=== PATIENT | female | born 1935 | race Caucasian/White ===

== ENCOUNTER → 2017-01-11 | Outpatient (CLI) | payer OTHER ==
[~2017-01-11] MED LIST: ACET-1256 PO; AMLO2.5T PO; FURO-85 PO; LORA-741 PO; ZNTT/150 PO
[2017-01-11 11:29] LABS: HEMATOCRIT 37.3 % (37-47); MEAN CELL VOLUME 96.4 fL (80-100); MEAN CORPUSCULAR HEMOGLOBIN 33.3 pg (25-34); MEAN CORPUSCULAR HGB CONC 34.6 g/dl (32-36); MEAN PLATELET VOLUME 9.7 fL (7.4-10.4); PLATELET COUNT 346 K/uL (130-400); RED BLOOD COUNT 3.87 M/uL (4.2-5.4); WHITE BLOOD COUNT 7.28 K/uL (4.8-10.8)
[2017-01-11 11:33] LABS: URINE APPEARANCE CLEAR (CLEAR); URINE BILIRUBIN NEG (NEG); URINE COLOR YELLOW; URINE EPITHELIAL CELL AUTO 0-5 /lpf (0-5); URINE NITRITE NEG (NEG); URINE SPECIFIC GRAVITY 1.005 (1.000-1.030); UROBILINOGEN NEG (NEG)
[2017-01-11 11:35] LABS: MANUAL MICROSCOPIC REQUIRED? NO; REVIEW REQ? NO
[2017-01-11 11:41] LABS: BLOOD UREA NITROGEN 25 mg/dl (7-18); CALCIUM 9.7 mg/dl (8.5-10.1); CARBON DIOXIDE 23 mmol/L (21-32); CHLORIDE 106 mmol/L (98-107); GLUCOSE 104 mg/dl (70-99); PHOSPHORUS 2.1 mg/dl (2.5-4.9); POTASSIUM 3.9 mmol/L (3.5-5.1); SODIUM 142 mmol/L (136-145)
[2017-01-11 12:00] LABS: URINE PROTIEN/CREAT RATIO 0.3 (0-0.2); URINE TOTAL PROTEIN 6.6 mg/dl (0-11.9)
== END | disposition home or self-care (01) ==
LOC: C.LAB1850 10:26
PROVIDERS: ATTEND Internal Medicine Nephrology
DX: I12.9 Hypertensive chronic kidney disease with stage 1 through stage 4 chronic kidney disease, or unspecified chronic kidney disease (principal); N18.3 Chronic kidney disease, stage 3 (moderate); E55.9 Vitamin D deficiency, unspecified

== ENCOUNTER → 2017-06-11 | Outpatient (CLI) | payer OTHER | END | disposition home or self-care (01) | LOC: C.PATHSPEC 10:45 | PROVIDERS: ATTEND Internal Medicine | DX: D04.4 Carcinoma in situ of skin of scalp and neck (principal) ==

== ENCOUNTER → 2017-06-21 | Outpatient (CLI) | payer OTHER | END | disposition home or self-care (01) | LOC: C.PATHSPEC 11:49 | PROVIDERS: ATTEND Plastic Surgery | DX: C44.42 Squamous cell carcinoma of skin of scalp and neck (principal) ==

== ENCOUNTER → 2017-06-29 | Outpatient (CLI) | payer OTHER | END | disposition home or self-care (01) | LOC: C.PATHSPEC 10:45 | PROVIDERS: ATTEND Plastic Surgery | DX: C44.621 Squamous cell carcinoma of skin of unspecified upper limb, including shoulder (principal); C44.721 Squamous cell carcinoma of skin of unspecified lower limb, including hip ==

== ENCOUNTER → 2017-07-14 | Outpatient (CLI) | payer OTHER ==
[2017-07-14 12:13] LABS: HEMATOCRIT 38.6 % (37-47); MEAN CELL VOLUME 98.2 fL (80-100); MEAN CORPUSCULAR HEMOGLOBIN 33.6 pg (25-34); MEAN CORPUSCULAR HGB CONC 34.2 g/dl (32-36); MEAN PLATELET VOLUME 9.6 fL (7.4-10.4); PLATELET COUNT 354 K/uL (130-400); RED BLOOD COUNT 3.93 M/uL (4.2-5.4); WHITE BLOOD COUNT 7.25 K/uL (4.8-10.8)
[2017-07-14 12:19] LABS: URINE APPEARANCE CLEAR (CLEAR); URINE BILIRUBIN NEG (NEG); URINE COLOR YELLOW; URINE NITRITE NEG (NEG); URINE PH 5.5 (4.5-7.5); URINE SPECIFIC GRAVITY 1.015 (1.000-1.030); UROBILINOGEN NEG (NEG)
[2017-07-14 12:24] LABS: MANUAL MICROSCOPIC REQUIRED? NO; REVIEW REQ? NO
[2017-07-14 12:32] LABS: URINE PROTIEN/CREAT RATIO 0.2 (0-0.2); URINE TOTAL PROTEIN 6.2 mg/dl (0-11.9)
[2017-07-14 12:36] LABS: BLOOD UREA NITROGEN 28 mg/dl (7-18); BUN/CREATININE RATIO 23.2 (10-20); CALCIUM 9.6 mg/dl (8.5-10.1); CARBON DIOXIDE 26 mmol/L (21-32); CHLORIDE 106 mmol/L (98-107); GLUCOSE 102 mg/dl (70-99); PHOSPHORUS 2.3 mg/dl (2.5-4.9); POTASSIUM 3.4 mmol/L (3.5-5.1); SODIUM 140 mmol/L (136-145)
== END | disposition home or self-care (01) ==
LOC: C.LAB1850 11:14
PROVIDERS: ATTEND Internal Medicine Nephrology
DX: I12.9 Hypertensive chronic kidney disease with stage 1 through stage 4 chronic kidney disease, or unspecified chronic kidney disease (principal); N18.3 Chronic kidney disease, stage 3 (moderate); E55.9 Vitamin D deficiency, unspecified; R42 Dizziness and giddiness

== ENCOUNTER → 2017-11-03 | Outpatient (CLI) | payer OTHER ==
[~2017-11-03] MED LIST changes: +RANI150T85 PO; -ZNTT/150 PO
--- NOTE | 2017-11-04 13:47 | MAMMOGRAPHY REPORT ---
BILATERAL DIGITAL SCREENING MAMMOGRAM TOMOSYNTHESIS WITH CAD: 11/03/2017 CLINICAL HISTORY: Routine screening. Patient has no complaints. TECHNIQUE: Breast tomosynthesis in addition to standard 2D mammography was performed. Current study was also evaluated with a Computer Aided Detection (CAD) system. COMPARISON: Comparison is made to exams dated: 10/29/2016 mammogram, 10/28/2015 mammogram, 4 mammogram, 10/12/2013 mammogram, 10/11/2012 mammogram, and 10/08/2011 mammogram - [facility]. BREAST COMPOSITION: There are scattered areas of fibroglandular density in both breasts. FINDINGS: There is a stable grouping of punctate macro calcifications in the right upper outer quadra nt and a few other scattered stable benign-appearing calcifications in the breasts. Stable nodular a symmetry in the medial left breast. Mild vascular calcification bilaterally. No new suspicious mass , architectural distortion or cluster of microcalcifications is seen. IMPRESSION: ACR BI-RADS CATEGORY 1: NEGATIVE There is no mammographic evidence of malignancy. A 1 year screening mammogram is recommended. The pa tient will receive written notification of the results. Approximately 10% of breast cancers are not detected with mammography. A negative mammographic report should not delay biopsy if a clinically suggestive mass is present. Sandy Gonzalez M.D. ay/:11/03/2017 16:42:48 Bench Carpenter: Aleida Burns, [facility] letter sent: Normal 1/2 BI-RADS Code: ACR BI-RADS Category 1: Negative
== END | disposition home or self-care (01) ==
LOC: C.MAMM 09:51
PROVIDERS: ATTEND Obstetrics & Gynecology
DX: Z12.31 Encounter for screening mammogram for malignant neoplasm of breast (principal)

== ENCOUNTER → 2017-12-21 | Outpatient (CLI) | payer OTHER ==
[2017-12-21 15:12] LABS: BASO % 0.5 %; BASO ABS # 0.02 K/uL (0-0.2); EOS % 0.5 %; EOS ABS # 0.02 K/uL (0-0.5); HEMATOCRIT 38.5 % (37-47); HEMOGLOBIN 13.4 g/dL (12.0-16.0); LYMPH % 32.4 %; LYMPH ABS # 1.24 K/uL (1.2-3.4); MEAN CELL VOLUME 95.8 fL (80-100); MEAN CORPUSCULAR HEMOGLOBIN 33.3 pg (25-34); MEAN CORPUSCULAR HGB CONC 34.8 g/dl (32-36); MONO % 10.4 %; NEUT % 56.2 %; NEUT ABS # 2.15 K/uL (1.4-6.5); PLATELET COUNT 300 K/uL (130-400); RED CELL DISTRIBUTION WIDTH CV 13.6 % (11.5-14.5); RED CELL DISTRIBUTION WIDTH SD 47.7 fL (36.4-46.3); WHITE BLOOD COUNT 3.83 K/uL (4.8-10.8)
[2017-12-21 15:19] LABS: ALBUMIN 3.8 gm/dl (3.4-5.0); ALT/SGPT 23 U/L (12-78); AST/SGOT 28 U/L (15-37); BLOOD UREA NITROGEN 23 mg/dl (7-18); CARBON DIOXIDE 21 mmol/L (21-32); CREATININE 1.32 mg/dl (0.60-1.20); GLUCOSE 114 mg/dl (70-99); POTASSIUM 3.4 mmol/L (3.5-5.1); SODIUM 138 mmol/L (136-145)
[2017-12-21 15:22] LABS: ALKALINE PHOSPHATASE 86 U/L (45-117); TOTAL PROTEIN 7.9 gm/dl (6.4-8.2)
== END | disposition home or self-care (01) ==
LOC: C.LABSPEC 14:47
PROVIDERS: ATTEND Internal Medicine Hematology & Oncology
DX: Z85.72 Personal history of non-Hodgkin lymphomas (principal)

== ENCOUNTER 2017-12-28 10:09 | Emergency (ER) | payer OTHER ==
[~2017-12-28] VITALS: Ht 154.9 cm; Wt 64.5 kg
[2017-12-28 10:30] VITALS: TEMP 36.7; Ht 154.9 cm; Wt 64.5 kg
[2017-12-28 10:50] VITALS: O2SAT 96
[2017-12-28 11:46] LABS: BASO % 0.2 %; BASO ABS # 0.02 K/uL (0-0.2); EOS % 0.4 %; EOS ABS # 0.03 K/uL (0-0.5); HEMOGLOBIN 13.4 g/dL (12.0-16.0); IG# 0.01 K/uL (0.00-0.02); LYMPH ABS # 1.37 K/uL (1.2-3.4); MEAN CORPUSCULAR HEMOGLOBIN 33.5 pg (25-34); MEAN CORPUSCULAR HGB CONC 35.3 g/dl (32-36); MEAN PLATELET VOLUME 9.7 fL (7.4-10.4); MONO % 7.8 %; MONO ABS # 0.67 K/uL (0.11-0.59); NEUT % 75.5 %; NEUT ABS # 6.44 K/uL (1.4-6.5); PLATELET COUNT 333 K/uL (130-400); RED CELL DISTRIBUTION WIDTH CV 13.2 % (11.5-14.5); RED CELL DISTRIBUTION WIDTH SD 45.9 fL (36.4-46.3); WHITE BLOOD COUNT 8.54 K/uL (4.8-10.8)
[2017-12-28 11:54] LABS: INR 1.1 (0.9-1.1); PTT PATIENT 24.5 SECONDS (21.0-31.0)
[2017-12-28 12:04] LABS: BLOOD UREA NITROGEN 17 mg/dl (7-18); CALCIUM 9.4 mg/dl (8.5-10.1); CARBON DIOXIDE 26 mmol/L (21-32); CREATININE 0.93 mg/dl (0.60-1.20); GLUCOSE 97 mg/dl (70-99); POTASSIUM 3.2 mmol/L (3.5-5.1); SODIUM 142 mmol/L (136-145)
[2017-12-28] MEDS ORDERED: POTASSIUM CHLORIDE 10 MEQ TABCR PO STA (12:33)
[2017-12-28 12:42] LABS: INFLUENZA A PCR Neg for Influ A (NEG); INFLUENZA B PCR POS for Influ B (NEG)
--- NOTE | 2017-12-28 13:19 | DIAGNOSTIC IMAGING REPORT ---
CHEST 2 VIEWS ROUTINE CLINICAL HISTORY: cough eval for pna dyspnea COMPARISON STUDY: 06/20/2016 FINDINGS: The bones soft tissues and hemidiaphragms are normal. The cardiomediastinal silhouette is normal. The lungs are clear. The pulmonary vasculature is normal. Chronic pleural reactive changes left base. Mild underlying emphysematous change. IMPRESSION: Chronic change. No acute process. The above report was generated using voice recognition software. It may contain grammatical, syntax or spelling errors. Electronically signed by: Chan Dinh M.D. 12/28/2017 1:17 PM Dictated Date/Time: 12/28/2017 1:17 PM
[2017-12-28 14:27] VITALS: BP 166/70; PULSE 90; O2SAT 99
--- NOTE | 2017-12-28 17:51 | EMERGENCY ROOM VISIT NOTE ---
History Report prepared by Clara: Shasha Montilla Under the Supervision of: Dr. Moncho Anderson M.D. First contact with patient: 10:55 Chief Complaint: FLU LIKE SX Stated Complaint: WEAKNESS,COUGH,DIZZY History of Present Illness The patient is a 82 year old female who presents to the Emergency Room with complaints of constant flu-like symptoms for the past couple of weeks. The patient states that her symptoms initially started with a productive cough. She has had chills and sharp pain in her chest with coughing only. She denies any chest pressure or tightness. She saw her PCP two weeks ago and was diagnosed with bronchitis. She was placed on azithromycin at that time. She finished this medication last week. The patient states that she was feeling better and her cough has improved. Now she feels fine with resting but states that when she stands up and moves around she feels weak and lightheaded. She had decreased appetite but states that she has been eating normally over the past two days. Prior to that she was only drinking Gatorade and not eating. The patient denies fevers, shortness of breath, vomiting, abdominal pain, and diarrhea. She did not have a flu shot this year. Source of History: patient Onset: a couple of weeks ago Position: other (global) Quality: other (flu-like) Timing: constant Modifying Factors (Worsening): other (standing up and moving around) Modifying Factors (Relieving): rest Associated Symptoms: + cough, + weakness, No fevers, No SOB, No vomiting, No abdominal pain, No diarrhea Review of Systems See HPI for pertinent positives & negatives. A total of 10 systems reviewed and were otherwise negative. 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 Family History Cancer Hypertension Social History Smoking Status: Former Smoker Alcohol Use: none Drug Use: none Housing Status: lives alone Occupation Status: retired Current/Historical Medications Scheduled Amlodipine (Norvasc), 5 MG PO QAM Furosemide (Lasix), 20 MG PO QAM Ranitidine (Zantac), 150 MG PO BID Scheduled PRN Acetaminophen (Tylenol), 500 MG PO Q6 PRN for Pain Lorazepam (Ativan), 0.5 MG PO TID PRN for Anxiety Allergies Coded Allergies: Cortisone (Verified Allergy, Severe, SWELLING , H/A , HALLUCINATIONS, 12/28) Chocolate (Unverified Allergy, Unknown, RASH, 12/28/17) Diphenhydramine (Verified Allergy, Unknown, Facial swelling,redness and burning sensation., 12/28/17) Reported by PT. Iodinated Diagnostic Agents (Verified Allergy, Unknown, REDDNESS, SWELLING , 12/28/17) Physical Exam Vital Signs Date Time Temp Pulse Resp B/P (MAP) Pulse Ox O2 Delivery O2 Flow Rate FiO2 12/28/17 14:27 90 16 166/70 99 12/28/17 12:00 82 161/67 98 Room Air 80 165/76 98 170/75 12/28/17 10:54 82 12/28/17 10:50 96 Room Air 12/28/17 10:30 36.7 86 18 149/74 96 Room Air Physical Exam Constitutional: Vital signs reviewed. Eyes: Pupils are equal round reactive to light. Conjunctiva are noninjected. ENT: Pharynx is clear without erythema or exudate. Mucous membranes are moist. Neck supple without meningeal signs. Respiratory: Scattered wheezing. Breath sounds are equal bilaterally. Cardiovascular: Regular rate and rhythm. No rubs or gallops. GI: Soft, nondistended and nontender. Bowel sounds are present. Musculoskeletal: No peripheral edema. No lower extremity tenderness. Integumentary: No cyanosis. Neurological: The patient is awake and alert. No focal deficits. Psychiatric: Normal affect. Medical Decision & Procedures ER Provider Diagnostic Interpretation: Radiology results as stated below per my review and the radiologist's interpretation: CHEST 2 VIEWS ROUTINE CLINICAL HISTORY: cough eval for pna dyspnea COMPARISON STUDY: 06/20/2016 FINDINGS: The bones soft tissues and hemidiaphragms are normal. The cardiomediastinal silhouette is normal. The lungs are clear. The pulmonary vasculature is normal. Chronic pleural reactive changes left base. Mild underlying emphysematous change. IMPRESSION: Chronic change. No acute process. The above report was generated using voice recognition software. It may contain grammatical, syntax or spelling errors. Electronically signed by: Chan Dinh M.D. 12/28/2017 1:17 PM Dictated Date/Time: 12/28/2017 1:17 PM Laboratory Results 12/28/17 11:28 Red Blood Count 4.00, Mean Corpuscular Volume 95.0, Mean Corpuscular Hemoglobin 33.5, Mean Corpuscular Hemoglobin Concent 35.3, Mean Platelet Volume 9.7, Neutrophils (%) (Auto) 75.5, Lymphocytes (%) (Auto) 16.0, Monocytes (%) (Auto) 7.8, Eosinophils (%) (Auto) 0.4, Basophils (%) (Auto) 0.2, Neutrophils # (Auto) 6.44, Lymphocytes # (Auto) 1.37, Monocytes # (Auto) 0.67, Eosinophils # (Auto) 0.03, Basophils # (Auto) 0.02 12/28/17 11:28 Test 12/28/17 11:15 12/28/17 11:28 12/28/17 11:44 Influenza Type A (RT-PCR) Neg for Influ A (NEG) Influenza Type B (RT-PCR) POS for Influ B (NEG) White Blood Count 8.54 K/uL (4.8-10.8) Red Blood Count 4.00 M/uL (4.2-5.4) Hemoglobin 13.4 g/dL (12.0-16.0) Hematocrit 38.0 % (37-47) Mean Corpuscular Volume 95.0 fL (80-100) Mean Corpuscular Hemoglobin 33.5 pg (25-34) Mean Corpuscular Hemoglobin Concent 35.3 g/dl (32-36) Platelet Count 333 K/uL (130-400) Mean Platelet Volume 9.7 fL (7.4-10.4) Neutrophils (%) (Auto) 75.5 % Lymphocytes (%) (Auto) 16.0 % Monocytes (%) (Auto) 7.8 % Eosinophils (%) (Auto) 0.4 % Basophils (%) (Auto) 0.2 % Neutrophils # (Auto) 6.44 K/uL (1.4-6.5) Lymphocytes # (Auto) 1.37 K/uL (1.2-3.4) Monocytes # (Auto) 0.67 K/uL (0.11-0.59) Eosinophils # (Auto) 0.03 K/uL (0-0.5) Basophils # (Auto) 0.02 K/uL (0-0.2) RDW Standard Deviation 45.9 fL (36.4-46.3) RDW Coefficient of Variation 13.2 % (11.5-14.5) Immature Granulocyte % (Auto) 0.1 % Immature Granulocyte # (Auto) 0.01 K/uL (0.00-0.02) Prothrombin Time 11.1 SECONDS (9.0-12.0) Prothromb Time International Ratio 1.1 (0.9-1.1) Activated Partial Thromboplast Time 24.5 SECONDS (21.0-31.0) Partial Thromboplastin Ratio 0.9 Anion Gap 8.0 mmol/L (3-11) Est Creatinine Clear Calc Drug Dose 39.4 ml/min Estimated GFR () 65.9 Estimated GFR (Non- 56.8 BUN/Creatinine Ratio 18.1 (10-20) Calcium Level 9.4 mg/dl (8.5-10.1) Troponin I < 0.015 ng/ml (0-0.045) Thyroid Stimulating Hormone (TSH) 2.130 uIu/ml (0.300-4.500) Free Thyroxine 1.20 ng/dl (0.80-1.60) Urine Color YELLOW Urine Appearance CLEAR (CLEAR) Urine pH 6.0 (4.5-7.5) Urine Specific [place] 1.007 (1.000-1.030) Urine Protein NEG (NEG) Urine Glucose (UA) NEG (NEG) Urine Ketones NEG (NEG) Urine Occult Blood NEG (NEG) Urine Nitrite NEG (NEG) Urine Bilirubin NEG (NEG) Urine Urobilinogen NEG (NEG) Urine Leukocyte Esterase TRACE (NEG) Urine WBC (Auto) 1-5 /hpf (0-5) Urine RBC (Auto) 0-4 /hpf (0-4) Urine Hyaline Casts (Auto) 1-5 /lpf (0-5) Urine Epithelial Cells (Auto) 0-5 /lpf (0-5) Urine Bacteria (Auto) NEG (NEG) Laboratory results as reviewed by me. Medications Administered Medications (Trade) Dose Ordered Sig/Jarrett Route Start Time Stop Time Status Last Admin Dose Admin Potassium Chloride (Klor-Con M10) 40 meq NOW STAT PO 12/28/17 12:33 12/28/17 12:34 DC 12/28/17 13:16 40 MEQ ECG Per My Interpretation Indication: weakness Rate (beats per minute): 79 Rhythm: normal sinus Findings: no ectopy, other (no ST elevation; baseline artifact limiting interpretation; questionable biphasic T-waves in V3) ED Course 1055: The patient was evaluated in room B9. A complete history and physical exam was performed. 1233: Potassium Chloride 40 meq PO 1357: I reassessed the patient at this time. She is feeling better and resting comfortably. I discussed the results and treatment plan with the patient. I answered all pertaining questions that she had. She expressed understanding and verbalized agreement. The patient will be discharged home. Medical Decision This is an 82-year-old female presents with flulike symptoms and generalized weakness. Differential diagnosis includes pneumonia, bronchitis, sepsis, influenza, dehydration. I did perform a limited focused review of portions of the patient's old chart on the electronic medical record. The patient has had no recent pertinent visits to this hospital. I did evaluate the patient as noted above. IV access was established. The patient was placed on a continuous monitor technician. I did order and personally review the patient's 12-lead EKG and chest x-ray as described above. Chest x- ray does not demonstrate pneumonia. I did order and review the patient's blood work as noted in the electronic medical record. She does have hypokalemia. She was given some oral potassium. I did order a flu test which was positive for influenza B. I did reassess the patient. I did discuss the test results with the patient and her daughter. She has had symptoms for 2 weeks and so she is not a candidate for Tamiflu. She was discharged in good condition and advised to follow closely with her doctor. Medication Reconcilliation Current Medication List: was personally reviewed by me Blood Pressure Screening Patient's blood pressure: Elevated blood pressure Blood pressure disposition: Referred to PCP Impression Primary Impression: Influenza B Additional Impression: Hypokalemia Scribe Attestation The scribe's documentation has been prepared under my direct and personally reviewed by me in its entirety. I confirm that the note above accurately reflects all work, treatment, procedures, and medical decision making performed by me. Departure Information Dispostion Home / Self-Care Referrals Chava Grey M.D. (PCP) Forms HOME CARE DOCUMENTATION FORM, IMPORTANT VISIT INFORMATION Patient Instructions ED Flu, Hypokalemia Dc, My [facility] Additional Instructions You have been examined and treated today on an emergency basis only. This is not a substitute for, or an effort to provide, complete comprehensive medical care. It is impossible to recognize and treat all injuries or illnesses in a single emergency department visit. It is therefore important that you follow up closely with your physician. Call as soon as possible for an appointment. Return for worsening symptoms or if you develop trouble breathing, vomiting or any other concerning symptoms. Problem Qualifiers
== END 2017-12-28 14:28 | disposition home or self-care (01) ==
LOC: C.EDB 10:10
DX: J10.1 Influenza due to other identified influenza virus with other respiratory manifestations (principal); E87.6 Hypokalemia; I10 Essential (primary) hypertension; K57.90 Diverticulosis of intestine, part unspecified, without perforation or abscess without bleeding; Z82.49 Family history of ischemic heart disease and other diseases of the circulatory system; Z87.891 Personal history of nicotine dependence; Z88.8 Allergy status to other drugs, medicaments and biological substances

== ENCOUNTER → 2018-01-11 | Outpatient (CLI) | payer OTHER ==
--- NOTE | 2018-01-11 12:35 | DIAGNOSTIC IMAGING REPORT ---
SOFT TISS HEAD/NECK-THYROID CLINICAL HISTORY: 82 years-old Female with RIGHT NECK MASS. Acute palpable amount of the right neck COMPARISON: MRA of the neck 06/20/2016 TECHNIQUE: Multiple real time sonographic images of the right neck were obtained accessing garner scale appearance and color doppler flow. FINDINGS: Within the area of palpable concern there is a heterogeneous complex soft tissue mass within the superficial subcutaneous and deep tissues measuring 5.1 x 2.4 x 4.3 cm inferior to the right submandibular region demonstrating heterogeneous internal vascularity. No drainable fluid collections or additional soft tissue mass is identified. IMPRESSION: 5.1 cm heterogeneous soft tissue mass of the right neck within the right submandibular region. The lesion is marked for ultrasound-guided biopsy. The above report was generated using voice recognition software. It may contain grammatical, syntax or spelling errors. Electronically signed by: Luis Manuel Thomas M.D. 01/11/2018 12:34 PM Dictated Date/Time: 01/11/2018 12:30 PM
--- NOTE | 2018-01-11 13:42 | DIAGNOSTIC IMAGING REPORT ---
GUIDANCE NEEDLE PLACEMENT CLINICAL HISTORY: Heterogeneous 5.1 cm mass of the right neck. Patient presents with history of lymphoma. COMPARISON STUDY: Neck ultrasound of same day. PROCEDURE: The risks, benefits, and alternatives to the procedure were discussed with the patient. Written informed consent was obtained. The patient was placed supine in ultrasound, and the 5.1 cm heterogeneous mass of the right neck was localized by ultrasound and selected for fine needle aspiration and core needle biopsy. The right neck was prepped and draped in the usual sterile fashion. The mass was aspirated under ultrasound guidance with 2 passes utilizing 25-gauge needles and one pass with a 20-gauge core needle biopsy device. Specimens were reviewed by the pathologist in real-time and deemed adequate for diagnosis. The patient tolerated the procedure well and left the department in satisfactory condition. IMPRESSION: Completed fine-needle aspiration and core needle biopsy of a 5.1 cm right neck mass as above. Pathology pending. The above report was generated using voice recognition software. It may contain grammatical, syntax or spelling errors. Electronically signed by: Luis Manuel Thomas M.D. 01/11/2018 1:40 PM Dictated Date/Time: 01/11/2018 1:37 PM
== END | disposition home or self-care (01) ==
LOC: C.ULTR 11:46
PROVIDERS: ATTEND Internal Medicine Hematology & Oncology
DX: R22.1 Localized swelling, mass and lump, neck (principal); Z85.72 Personal history of non-Hodgkin lymphomas

== ENCOUNTER → 2018-01-13 | Outpatient (CLI) | payer OTHER ==
[2018-01-13 15:29] LABS: BASO % 0.5 %; BASO ABS # 0.04 K/uL (0-0.2); EOS ABS # 0.09 K/uL (0-0.5); HEMATOCRIT 37.1 % (37-47); HEMOGLOBIN 12.9 g/dL (12.0-16.0); IG# 0.03 K/uL (0.00-0.02); LYMPH % 24.2 %; LYMPH ABS # 2.08 K/uL (1.2-3.4); MEAN CELL VOLUME 97.1 fL (80-100); MEAN CORPUSCULAR HEMOGLOBIN 33.8 pg (25-34); MEAN CORPUSCULAR HGB CONC 34.8 g/dl (32-36); MEAN PLATELET VOLUME 9.7 fL (7.4-10.4); MONO % 9.5 %; MONO ABS # 0.82 K/uL (0.11-0.59); NEUT % 64.5 %; NEUT ABS # 5.53 K/uL (1.4-6.5); PLATELET COUNT 422 K/uL (130-400); RED CELL DISTRIBUTION WIDTH CV 14.1 % (11.5-14.5); RED CELL DISTRIBUTION WIDTH SD 50.1 fL (36.4-46.3); WHITE BLOOD COUNT 8.59 K/uL (4.8-10.8)
[2018-01-13 16:40] LABS: BLOOD UREA NITROGEN 25 mg/dl (7-18); CARBON DIOXIDE 23 mmol/L (21-32); CREATININE 1.18 mg/dl (0.60-1.20); GLUCOSE 111 mg/dl (70-99); POTASSIUM 3.7 mmol/L (3.5-5.1); SODIUM 137 mmol/L (136-145)
== END | disposition home or self-care (01) ==
LOC: C.LABSPEC 14:32
PROVIDERS: ATTEND Internal Medicine
DX: N18.3 Chronic kidney disease, stage 3 (moderate) (principal); I12.9 Hypertensive chronic kidney disease with stage 1 through stage 4 chronic kidney disease, or unspecified chronic kidney disease; E55.9 Vitamin D deficiency, unspecified

== ENCOUNTER → 2018-02-21 | Outpatient (CLI) | payer OTHER ==
--- NOTE | 2018-02-21 14:37 | DIAGNOSTIC IMAGING REPORT ---
PET/CT HISTORY: LYMPHOMA TECHNIQUE: PET/CT was performed from the base of the skull through the pelvis following the intravenous administration of 9.8 mCi of F18-FDG. Non-contrast CT imaging was performed over the same range without breath-hold for attenuation correction of PET images and anatomic correlation, but not for primary interpretation as it is not of standard diagnostic quality. CT DOSE: 528.71 mGycm COMPARISON: Neck CT 06/02/2016. Neck ultrasound 01/11/2018. PET CT 09/10/2014. FINDINGS: HEAD AND NECK: There is a 4 cm mass within the right side of the neck which demonstrates intense FDG uptake with an SUV max of 7. There is a 7 mm lymph node within the left neck base which has decreased in size, previously measuring 13 mm. The FDG uptake associated with this lesion has also decreased measuring 2.5. However, there is a new right supraclavicular FDG avid lymph node right which measures 11 mm and demonstrates an SUV max of 2.1. FDG uptake within the posterior fat of the neck base may be due to brown fat. CHEST: No FDG avid mediastinal or hilar lymph nodes. Mildly enlarged right axillary lymph nodes demonstrate mild FDG uptake with an SUV max of 2. Dominant right axillary lymph node measures 1.2 cm. Increase in size in the left lower lateral pleural base lesion which measures 6.8 x 2.0 cm. This demonstrates intense FDG uptake with an SUV max of 14. There is a new FDG avid left lower posterior pleural-based lesion which measures 3.1 x 1.4 cm. This demonstrates an SUV max of 11. ABDOMEN/PELVIS: No FDG avid hepatic or splenic lesions. Interval development of multiple enlarged and FDG avid retroperitoneal lymph nodes. Dominant retroperitoneal lymph node measures 3.2 cm with an SUV max of 7. There are also enlarged left external iliac and inguinal lymph nodes demonstrating abnormal FDG uptake. Dominant external iliac lymph node measures 3.6 cm and demonstrates an SUV max of 15. There are few small right external iliac lymph nodes measure up to 9 mm which demonstrate minimal FDG uptake. There is also a 2 cm FDG avid nodule within the mid omentum on image 183. This demonstrates an SUV max of 4.9. MUSCULOSKELETAL: There is a 2.5 cm focus of intense FDG uptake associated with the femoral component of the left knee prosthesis. This demonstrates an SUV max of 6.9. This area is not well-visualized by the CT due to the metallic artifact. IMPRESSION: 1. Significant progression of FDG avid disease within the neck, chest, abdomen, pelvis as described above consistent with the patient's lymphoma. 2. There is also a 2.5 cm indeterminate focus of intense FDG uptake associated with the femoral component of the left knee prosthesis. This area is not well visualized by CT due to the metallic artifact. Electronically signed by: Andrew Mart M.D. 02/21/2018 2:36 PM Dictated Date/Time: 02/21/2018 2:14 PM
== END | disposition home or self-care (01) ==
LOC: C.PET 10:07
PROVIDERS: ATTEND Internal Medicine Hematology & Oncology
DX: C82.01 Follicular lymphoma grade I, lymph nodes of head, face, and neck (principal)

== ENCOUNTER → 2018-02-25 | Outpatient (CLI) | payer OTHER ==
[2018-02-25 18:14] LABS: BASO % 0.3 %; BASO ABS # 0.02 K/uL (0-0.2); EOS % 1.6 %; HEMATOCRIT 38.3 % (37-47); HEMOGLOBIN 12.9 g/dL (12.0-16.0); IG# 0.03 K/uL (0.00-0.02); LYMPH % 26.1 %; LYMPH ABS # 1.65 K/uL (1.2-3.4); MEAN CELL VOLUME 100.5 fL (80-100); MEAN CORPUSCULAR HEMOGLOBIN 33.9 pg (25-34); MEAN CORPUSCULAR HGB CONC 33.7 g/dl (32-36); MEAN PLATELET VOLUME 9.8 fL (7.4-10.4); MONO % 8.4 %; MONO ABS # 0.53 K/uL (0.11-0.59); NEUT % 63.1 %; NEUT ABS # 3.98 K/uL (1.4-6.5); PLATELET COUNT 348 K/uL (130-400); RED CELL DISTRIBUTION WIDTH CV 14.3 % (11.5-14.5); RED CELL DISTRIBUTION WIDTH SD 52.9 fL (36.4-46.3); WHITE BLOOD COUNT 6.31 K/uL (4.8-10.8)
[2018-02-25 18:38] LABS: ALBUMIN 3.8 gm/dl (3.4-5.0); ALT/SGPT 24 U/L (12-78); BLOOD UREA NITROGEN 24 mg/dl (7-18); CALCIUM 9.6 mg/dl (8.5-10.1); CARBON DIOXIDE 23 mmol/L (21-32); CREATININE 1.19 mg/dl (0.60-1.20); GLUCOSE 149 mg/dl (70-99); POTASSIUM 3.8 mmol/L (3.5-5.1); SODIUM 140 mmol/L (136-145)
[2018-02-25 18:41] LABS: ALKALINE PHOSPHATASE 79 U/L (45-117); AST/SGOT 19 U/L (15-37); TOTAL PROTEIN 7.5 gm/dl (6.4-8.2)
== END | disposition home or self-care (01) ==
LOC: C.LABSPEC 16:30
PROVIDERS: ATTEND Internal Medicine Hematology & Oncology
DX: C82.01 Follicular lymphoma grade I, lymph nodes of head, face, and neck (principal)

== ENCOUNTER → 2018-03-01 | Outpatient (CLI) | payer OTHER ==
--- NOTE | 2018-03-01 11:41 | DIAGNOSTIC IMAGING REPORT ---
RIBS UNILATERAL WITH PA CHEST CLINICAL HISTORY: LT RIB PAIN pain COMPARISON STUDY: 01/25/2018 FINDINGS: Mild cardiomegaly. Minimal pleural reactive change left base. The left ribs show no acute bony antibody. Cortical margins are intact. IMPRESSION: 1. Negative left ribs. 2. Mild atelectasis/pleural reactive changes left base. The above report was generated using voice recognition software. It may contain grammatical, syntax or spelling errors. Electronically signed by: Chan Dinh M.D. 03/01/2018 11:40 AM Dictated Date/Time: 03/01/2018 11:37 AM
== END | disposition home or self-care (01) ==
LOC: C.RAD 10:51
PROVIDERS: ATTEND Internal Medicine
DX: R07.81 Pleurodynia (principal)

== ENCOUNTER → 2018-03-08 | Outpatient (CLI) | payer OTHER ==
[2018-03-08 17:16] LABS: BASO % 0.3 %; BASO ABS # 0.02 K/uL (0-0.2); EOS % 1.1 %; EOS ABS # 0.08 K/uL (0-0.5); HEMATOCRIT 39.1 % (37-47); HEMOGLOBIN 13.3 g/dL (12.0-16.0); IG# 0.01 K/uL (0.00-0.02); LYMPH ABS # 1.62 K/uL (1.2-3.4); MEAN CORPUSCULAR HEMOGLOBIN 33.7 pg (25-34); MEAN PLATELET VOLUME 9.6 fL (7.4-10.4); MONO % 9.2 %; MONO ABS # 0.68 K/uL (0.11-0.59); NEUT % 67.3 %; NEUT ABS # 4.95 K/uL (1.4-6.5); PLATELET COUNT 390 K/uL (130-400); RED CELL DISTRIBUTION WIDTH SD 50.1 fL (36.4-46.3); WHITE BLOOD COUNT 7.36 K/uL (4.8-10.8)
[2018-03-08 17:27] LABS: ALT/SGPT 26 U/L (12-78); AST/SGOT 28 U/L (15-37); BLOOD UREA NITROGEN 25 mg/dl (7-18); CALCIUM 9.5 mg/dl (8.5-10.1); CARBON DIOXIDE 25 mmol/L (21-32); CREATININE 1.27 mg/dl (0.60-1.20); GLUCOSE 84 mg/dl (70-99); POTASSIUM 3.8 mmol/L (3.5-5.1); SODIUM 137 mmol/L (136-145)
[2018-03-08 17:29] LABS: ALKALINE PHOSPHATASE 79 U/L (45-117); TOTAL PROTEIN 8.2 gm/dl (6.4-8.2)
[2018-03-08 18:14] LABS: HEP C IGG 13 YRS+OLDER_RFLX NEG (NEG)
[2018-03-10 08:24] LABS: HEPATITIS A IGM TC 51813E NON-REACTIVE (NON-REACTIVE); HEPATITIS B CORE IGM TC51854R NON-REACTIVE (NON-REACTIVE)
--- NOTE | 2018-03-10 15:24 | CODING QUERY NO DIAGNOSIS ---
TREATMENT RENDERED WITHOUT A DIAGNOSIS 34 To promote full compliance with coding requirements relating to patient care, physician participation is requested in all cases of delinquent account clerk uncertainty. Please assist us with providing a diagnosis/symptom for the test(s) below: A diagnosis/symptom was not documented on your Order. A valid diagnosis/symptom is required to bill all insurances. Please remember that we are unable to code a diagnosis of rule out, probable, possible, questionable, or suspected. DOS 03/08/18 Tests that require a diagnosis: * COMP METABOLIC DIAGNOSIS: * LDH DIAGNOSIS: * CBC W/AUTO DIFF DIAGNOSIS: * HEPATITIS A ab, IgM DIAGNOSIS: * HEPATITIS B core antibody DIAGNOSIS: * HEPATITIS B surface antigen DIAGNOSIS: * HEPATITIS C antibody DIAGNOSIS: Provider Signature: Date: Thank you Christelherbie [facility] [employer] [facility] Once completed, please kindly fax back to [phone] For questions please call [phone]
== END | disposition home or self-care (01) ==
LOC: C.LABSPEC 16:47
PROVIDERS: ATTEND Internal Medicine Hematology & Oncology
DX: Z01.89 Encounter for other specified special examinations (principal)

== ENCOUNTER → 2018-03-15 | Outpatient (CLI) | payer OTHER ==
[2018-03-15 19:47] LABS: BASO % 0.1 %; BASO ABS # 0.01 K/uL (0-0.2); EOS % 0.6 %; EOS ABS # 0.05 K/uL (0-0.5); HEMATOCRIT 38.8 % (37-47); HEMOGLOBIN 13.1 g/dL (12.0-16.0); IG# 0.03 K/uL (0.00-0.02); LYMPH % 22.7 %; LYMPH ABS # 1.85 K/uL (1.2-3.4); MEAN CORPUSCULAR HEMOGLOBIN 33.8 pg (25-34); MEAN CORPUSCULAR HGB CONC 33.8 g/dl (32-36); MEAN PLATELET VOLUME 9.4 fL (7.4-10.4); MONO ABS # 0.98 K/uL (0.11-0.59); NEUT % 64.2 %; NEUT ABS # 5.24 K/uL (1.4-6.5); PLATELET COUNT 396 K/uL (130-400); RED CELL DISTRIBUTION WIDTH CV 14.1 % (11.5-14.5); RED CELL DISTRIBUTION WIDTH SD 51.7 fL (36.4-46.3); WHITE BLOOD COUNT 8.16 K/uL (4.8-10.8)
[2018-03-15 19:56] LABS: ALBUMIN 3.9 gm/dl (3.4-5.0); ALT/SGPT 25 U/L (12-78); AST/SGOT 21 U/L (15-37); BLOOD UREA NITROGEN 28 mg/dl (7-18); CALCIUM 9.3 mg/dl (8.5-10.1); CARBON DIOXIDE 25 mmol/L (21-32); CREATININE 1.27 mg/dl (0.60-1.20); GLUCOSE 98 mg/dl (70-99); POTASSIUM 3.6 mmol/L (3.5-5.1); SODIUM 139 mmol/L (136-145)
[2018-03-15 19:59] LABS: ALKALINE PHOSPHATASE 83 U/L (45-117); TOTAL PROTEIN 7.9 gm/dl (6.4-8.2)
--- NOTE | 2018-03-19 06:53 | CODING QUERY MEDICAL NECESSITY ---
CQTREATMENT RENDERED WITHOUT A DIAGNOSIS To promote full compliance with coding requirements relating to patient care, physician participation is requested in all cases of sandwich peddler uncertainty. Please assist us with providing a diagnosis/symptom for the test(s) below: A diagnosis/symptom was not documented on your Order. A valid diagnosis/symptom is required to bill all insurances. Please remember that we are unable to code a diagnosis of rule out, probable, possible, questionable, or suspected. Tests that require a diagnosis: DOS 03/15/18 CBC WITH AUTO DIFF COMPREHENSIVE METABOLIC Provider Signature: Date: Thank you Jessika [facility] Once completed, please kindly fax back to [phone] For questions please call [phone]
== END | disposition home or self-care (01) ==
LOC: C.LABSPEC 17:05
PROVIDERS: ATTEND Internal Medicine Hematology & Oncology
DX: I10 Essential (primary) hypertension (principal)

== ENCOUNTER 2018-12-23 11:57 | Inpatient (IN) ==
[2018-12-23] MEDS ORDERED: ONDANSETRON INJ 2 MG/ML 2 ML VIAL IV STA (12:49)
[2018-12-23 12:50] LABS: Hematocrit (blood only) 39.8 % (37-47); Hemoglobin 13.6 g/dL (12.0-16.0); Mean Corpuscular Hgb Conc 34.2 g/dL (32-36); Mean Platelet Volume 9.6 fL (7.4-10.4); Platelet Count 331 K/uL (130-400); RDW Coefficient of Variation 13.8 % (11.5-14.5); RDW Standard Deviation 49.3 fL (36.4-46.3); Red Blood Count 4.06 M/uL (4.2-5.4); White Blood Count 13.88 K/uL (4.8-10.8)
[2018-12-23] MEDS ORDERED: SODIUM CHLORIDE 0.9% 1000ML 1,000 ML IV SCH (13:00)
[2018-12-23] MEDS ORDERED: ACETAMINOPHEN 500 MG TAB PO STA (13:03)
[2018-12-23 13:07] LABS: Alanine Aminotransferase 17 U/L (12-78); Aspartate Aminotransferase 20 U/L (15-37); BUN Creatinine Ratio 17.5 (10-20); Blood Urea Nitrogen 22 mg/dl (7-18); Calcium 10.1 mg/dl (8.5-10.1); Carbon Dioxide 20 mmol/L (21-32); Chloride 105 mmol/L (98-107); Est GFR (African American) 45.3; Est GFR (Non-African American) 39.1; Glucose 104 mg/dl (70-99); Potassium 3.5 mmol/L (3.5-5.1); Sodium 137 mmol/L (136-145)
[2018-12-23 13:10] LABS: Albumin Globulin Ratio 1.1 (0.9-2); Alkaline Phosphatase 103 U/L (45-117); Bilirubin,Total 0.6 mg/dl (0.2-1); Globulin 3.7 gm/dl (2.5-4.0); Total Protein 7.7 gm/dl (6.4-8.2)
[2018-12-23 13:19] LABS: Basophils # (auto) 0.03 K/uL (0-0.2); Basophils % (auto) 0.2 %; Eosinophils # (auto) 0.01 K/uL (0-0.5); Eosinophils % (auto) 0.1 %; Immature Granulocytes # (auto) 0.97 K/uL (0.00-0.02); Lymphocytes # (auto) 0.65 K/uL (1.2-3.4); Lymphocytes % (auto) 4.7 %; Monocytes # (auto) 0.65 K/uL (0.11-0.59); Monocytes % (auto) 4.7 %; Neutrophils # (auto) 11.57 K/uL (1.4-6.5); Neutrophils % (auto) 83.3 %
--- NOTE | 2018-12-23 13:35 | CT Scan Report ---
CT abd pelvis wo con CT DOSE: 669.55 mGycm HISTORY: Pain llq abd pain TECHNIQUE: Multiaxial CT images of the abdomen and pelvis were performed without contrast. A dose lo wering technique was utilized adhering to the principles of ALARA. COMPARISON STUDY: 11/07/2018 FINDINGS: Lung bases are clear. Liver spleen and pancreas are unremarkable. Kidneys are negative for hydronephrosis. There is a left renal extrarenal pelvis which is unchanged. Retroperitoneal and para-aortic adenopathy is stable. Pelvic and inguinal adenopathy primarily on the left is also stable. Urinary tracts show no obstructive change. Bladder is midline with no contained calcifications. Bowel pattern is remarkable for scattered colonic diverticuli. There is no evidence for acute diverti culitis. The bowel pattern is nonobstructive. Considerable atherosclerotic change abdominal aorta as well as p elvic arterial vasculature considered unchanged. IMPRESSION: 1. Left iliac, inguinal, as well as abdominal]. Adenopathy. 2. This is considered stable compared to the prior study with no significant interval change. 3. Nonobstructive bowel pattern. 4.. Fibroid Uterus unchanged from the prior study. 5. No acute process of the abdomen or pelvis. The above report was generated using voice recognition software. It may contain grammatical, syntax or spelling errors. Electronically signed by: Chan Dinh M.D. 12/23/2018 1:34 PM
--- NOTE | 2018-12-23 14:07 | History & Physical Report ---
Date of Service December 23, 2018 Assessment & Plan (1) Abdominal lymphadenopathy: (2) Abdominal pain: - Admit to med surg with tele - Acute onset abdominal pain in the setting of current chemotherapeutics with WBC elevation of 13K, + left shift, and elevated lactic acid = 4 is concerning for bowel ischemia. - Consult general surgery for evaluation - CT noncontrast without acute findings, may repeat CT angio of the abdomen to evaluate for ischemia. Renal function is stable, Cr.= 1.2 - Check amylase - NSS at 125 ml/hr x 8 hrs. - Antiemetics (3) Non-Hodgkin lymphoma: - Consult oncology, follow with Dr. Persaud as an outpatient - Rituxin scheduled for 01/09/19 (4) Benign essential HTN: - BP stable, pt did not take morning medications today: hold lasix with fluid rescusitation for LA elevation. - Continue norvasc (5) Osteoarthritis: - Continue tylenol for pain prn (6) Anxiety: - Continue lorazepam 0.5 mg TID, pt typically may only use this once daily. - Stable (7) DVT prophylaxis: - heparin subq History of Present Illness Chief Complaint: Abdominal pain Primary Care Provider: Chava Clements MD This is a 83 yo F with PMHx of Nonhodgkin's lymphoma origionally diagnosed in 1999, actively being treated with Rituxin due to recurrence. Her most recent chemotherapy was at the end of November, and next sheduled tx is 01/09/19. She has had one abdominal surgery in the past where a lymph node was laproscopically removed ~7 years ago. She also has PMHx of HTN and osteoarthritis. Pt notes that this morning she was getting ready to drive her car, and all of a sudden developed left lower abdominal pain which caused her to double over and could barely walk, paired with ongoing cramping at this time , as well as radiation of pain into the groin. Since being in the ER she was given tylenol 1000 mg which has dulled the pain, and can tolerate palpation. She admits to nausea when the pain occurred, but did not vomit. Her bowels moved 1x this morning and were soft, brown and formed, no melena or BRBPR. Pt reports burning with urination today with abdominal pain, but denies increased frequency or hematuria. Allergies Allergy/AdvReac Type Severity Reaction Status Date / Time cortisone Allergy Severe SWELLING , Verified 12/23/18 13:50 H/A , HALLUCINATIONS chocolate flavor Allergy Unknown RASH Unverified 12/23/18 13:50 diphenhydramine Allergy Unknown Facial Verified 12/23/18 13:50 swelling,redness and burning sensation. Iodinated Contrast- Oral and Allergy Unknown REDDNESS, Verified 12/23/18 13:50 IV Dye SWELLING Home Medications Home Medications Medication Instructions Recorded Confirmed Type acetaminophen [Tylenol Extra 1,000 mg PO Q6H PRN 12/23/18 12/23/18 History Strength] amlodipine 5 mg PO QAM 12/23/18 12/23/18 History furosemide 20 mg PO QAM 12/23/18 12/23/18 History lorazepam 0.5 mg PO TID PRN 12/23/18 12/23/18 History multivitamin 1 tab PO QAM 12/23/18 12/23/18 History ranitidine HCl 150 mg PO BID 12/23/18 12/23/18 History Past Med/Surg History Medical History Abdominal pain Osteoarthritis Non-Hodgkin lymphoma Benign essential HTN Abdominal lymphadenopathy Anxiety (Acute) DVT prophylaxis Surgical History History of arthroplasty of left knee Family History Other Leukemia Social History Current Living Situation: Alone Other Information That Helps Us Care for You: No Feels Safe at Home: Yes Safety Concerns: Feels Safe At This Time Smoking Status: Former smoker Hx Alcohol Use: No Hx Substance Use: No Beliefs That Will Affect Care: None Preferred Language: Icelandic Communication Ability: Effective Motion Study Analyst Required: No Review of Systems Constitutional: no fever, no chills, no sweats and no fatigue Eyes: no diplopia and no worsening vision Ear, Nose, Mouth, Throat: no dizziness, no nasal discharge, no facial pain and no sore throat Respiratory: no cough, no dyspnea and no wheezing Cardiovascular: no chest pain, no palpitations, no lightheadedness and no syncope Gastrointestinal: as per Subjective / HPI; no vomiting, no constipation, no diarrhea/loose stools, no blood in stools and no melena Genitourinary (Female): no dysuria, no urinary frequency and no urinary incontinence Musculoskeletal: no back pain, no joint pain, no swelling and no muscle weakness Integumentary: no rash, no lesions and no wounds Neurologic: no gait abnormality, no falls, no numbness, no dizziness and no syncope Psychiatric: no depression and no anxiety Endocrine: no fatigue Physical Exam 2 Vital Signs (Past 24 Hours): Last Vital Signs Temp 36.9 C 12/23/18 12:01 Pulse 97 H 12/23/18 13:32 Resp 24 12/23/18 13:32 BP 157/64 H 12/23/18 13:32 Pulse Ox 100 12/23/18 13:32 Physical Exam: General: awake, alert, no apparent distress Head: Normocephalic, atraumatic ENT: PERRL, EOMI, no pharyngeal exudate, mucous membranes moist Chest: Clear to auscultation, on room air, no adventitious breath sounds Cardiac: Regular rate and rhythm, no murmur, no JVD, normal peripheral pulses, good capillary refill Abdominal: NABS x 4 quadrants, soft, + lymphadenopathy palpable in the right flank area, tender to palpation in the LLQ, +guarding, no rebound tenderness. Extremities: + axillary lymphadenopathy palpable bilaterally, Normal inspection , no peripheral edema or erythema, calfs nontender to palpation Psych: Normal mood and affect Neuro: AAO x 3, strength intact bilaterally and related 5/5, no motor deficits, speech is clear, no peripheral sensory deficits Results & Data Diagnostic Findings CT abd pelvis wo con CT DOSE: 669.55 mGycm HISTORY: Pain llq abd pain TECHNIQUE: Multiaxial CT images of the abdomen and pelvis were performed without contrast. A dose lowering technique was utilized adhering to the principles of ALARA. COMPARISON STUDY: 11/07/2018 FINDINGS: Lung bases are clear. Liver spleen and pancreas are unremarkable. Kidneys are negative for hydronephrosis. There is a left renal extrarenal pelvis which is unchanged. Retroperitoneal and para-aortic adenopathy is stable. Pelvic and inguinal adenopathy primarily on the left is also stable. Urinary tracts show no obstructive change. Bladder is midline with no contained calcifications. Bowel pattern is remarkable for scattered colonic diverticuli. There is no evidence for acute diverticulitis. The bowel pattern is nonobstructive. Considerable atherosclerotic change abdominal aorta as well as pelvic arterial vasculature considered unchanged. IMPRESSION: 1. Left iliac, inguinal, as well as abdominal]. Adenopathy. 2. This is considered stable compared to the prior study with no significant interval change. 3. Nonobstructive bowel pattern. 4.. Fibroid Uterus unchanged from the prior study. 5. No acute process of the abdomen or pelvis. Code Status & VTE Plan Code Status DNR Supervising Physician Co-Signing Physician Notes Pt seen/examined in conjunction with NUBIA Hung. Orders and plan of admission formulated with NUBIA. 83 yo F Hx of HTN and osteoarthritis, Nonhodgkin's lymphoma originally diagnosed in 1999 - recent recurrence and currently on treatment with Rituxan. Presents with acute lower quadrant abdominal pain which began AM prior to arrival. A CT in the ER did not reveal any acute findings. Initial labs are notable for an elevated lactic acid OE AAO x 3 S1,2 R CTAB Mild lower quadrant tenderness after receiving narcotics No CCE No deficits P: We do not currently have an etiology. There is concern for ischemia due to lactic acidosis. We have requested a surgery eval and a mesenteric US is pending on admission. We could potentially provide NTG to see if this alleviates her pain when it recurs.
[2018-12-23 15:57] LABS: Appearance Urine Clear (Clear); Bacteria Urine Automated Negative (Negative); Bilirubin Urine Negative (Negative); Cast Urine Automated 0 /lpf (0-5); Color Urine Yellow; Glucose Urine UA Negative (Negative); Ketones Urine Negative (Negative); Leukocyte Esterase Urine Trace (Negative); Nitrite Urine Negative (Negative); Protein Urine Negative (Negative); Specific Gravity Urine 1.014 (1.000-1.030); Urobilinogen Urine Negative (Negative)
[2018-12-23] MEDS ORDERED: ACETAMINOPHEN 500 MG TAB PO PRN (16:42)
[2018-12-23] MEDS ORDERED: LORazepam 0.5 MG TAB PO PRN (16:42)
[2018-12-23] MEDS ORDERED: ONDANSETRON INJ 2 MG/ML 2 ML VIAL IV PRN (16:42)
--- NOTE | 2018-12-23 16:52 | Ultrasound Report ---
US duplex mesenteric CLINICAL HISTORY: Lower abdominal pain and elevated lactic acid. Evaluate for mesenteric artery steno sis. COMPARISON STUDY: No previous studies for comparison. FINDINGS: The inferior mesenteric artery was not visualized. The peak systolic velocity within the celiac artery was 171 cm/s. Peak systolic velocity within the superior mesenteric artery which 323 cm/s. The peak systolic velocity within the hepatic artery was 132 cm/s. The peak systolic velocity within the splenic artery was 126 cm/s. IMPRESSION: 1. Elevated peak systolic velocity at the superior mesenteric artery origin. 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 CT angiography should be considered in follow-up for confirmation. Electronically signed by: Maxi Jolly M.D. 12/23/2018 4:51 PM
[2018-12-23] MEDS: SODIUM CHLORIDE 0.9% 1000ML 1,000 ML IV SCH (17:08)
[2018-12-23 17:16] LABS: INR 1.1 (0.9-1.1); Partial Thromboplastin Ratio 0.9; Partial Thromboplastin Time 22.4 Seconds (21.0-31.0); Prothrombin Time 10.9 Seconds (9.0-12.0)
--- NOTE | 2018-12-23 17:41 | Surgery Consultation ---
Date of Consultation December 23, 2018 Assessment & Plan (1) Abdominal pain: No acute abdominal findings. Ultrasound was in progress during my exam. Will follow. History of Present Illness Attending Physician: José Miguel Machado MD History of Present Illness 83 y/o female with LLQ abdominal pain that began rather suddenly this morning during her daily routine. She had normal bowel movement shortly before this pain began. Is a little improved after medicated. No N/V, fevers or chills. No melena, red blood or mucus in her stool now or in the past. Had colonoscopy several years ago. No cardiac history, or history of DVT. Is getting chemo for lymphoma. Allergies Allergy/AdvReac Type Severity Reaction Status Date / Time cortisone Allergy Severe SWELLING , Verified 12/23/18 13:50 H/A , HALLUCINATIONS chocolate flavor Allergy Unknown RASH Unverified 12/23/18 13:50 diphenhydramine Allergy Unknown Facial Verified 12/23/18 13:50 swelling,redness and burning sensation. Iodinated Contrast- Oral and Allergy Unknown REDDNESS, Verified 12/23/18 13:50 IV Dye SWELLING Home Medications Home Medications Medication Instructions Recorded Confirmed Type acetaminophen [Tylenol Extra 1,000 mg PO Q6H PRN 12/23/18 12/23/18 History Strength] amlodipine 5 mg PO QAM 12/23/18 12/23/18 History furosemide 20 mg PO QAM 12/23/18 12/23/18 History lorazepam 0.5 mg PO TID PRN 12/23/18 12/23/18 History multivitamin 1 tab PO QAM 12/23/18 12/23/18 History ranitidine HCl 150 mg PO BID 12/23/18 12/23/18 History Patient History Medical History Abdominal pain Osteoarthritis Non-Hodgkin lymphoma Benign essential HTN Abdominal lymphadenopathy Anxiety (Acute) DVT prophylaxis Surgical History History of arthroplasty of left knee Family History Other Leukemia Social History Feels Safe at Home: Yes Smoking Status: Never smoker Preferred Language: Pakistani Review of Systems Constitutional: no fever, no chills, no malaise and no anorexia Gastrointestinal: + abdominal pain and + heartburn (during ultrasound); no bloating, no nausea, no vomiting, no change in bowel habits, no change in stools , no constipation, no diarrhea/loose stools, no fecal incontinence, no constant urge to pass stools, no blood in stools and no melena Physical Exam 2 Vital Signs (Past 24 Hours): Last Vital Signs Temp 36.8 C 12/23/18 16:53 Pulse 86 12/23/18 17:33 Resp 20 12/23/18 16:53 BP 155/72 H 12/23/18 16:53 Pulse Ox 98 12/23/18 16:53 Constitutional: WD/WN, vitals as above Respiratory: normal respiratory effort; no respiratory distress Cardiovascular: Rate/Rhythm: regular rate and regular rhythm Gastrointestinal (Abdomen): Inspection/Auscultation: abdomen not distended Percussion/Palpation: + abdomen tender (mild LLQ) and abdomen soft; no guarding and abdomen not rigid
[2018-12-23] MEDS ORDERED: MoRPHine SULFATE 4 MG/ML 1 ML CARP\\VIAL IV PRN (17:58)
[2018-12-23] MEDS: MoRPHine SULFATE 4 MG/ML 1 ML CARP\\VIAL IV PRN (18:07)
--- NOTE | 2018-12-23 19:04 | Emergency Department Note ---
Entered by Rommel Kong acting as a scribe for Pedro Navarrete DO History of Present Illness General Chief complaint: Abdominal Pain Stated complaint: LOWER ABD PAIN Time Seen by Provider: 12/23/18 12:26 Source: patient History of Present Illness Onset (ago): hour(s) 3 Location: abdomen (lower) Pain Consistency: + constant Relieved By: + other (temporarily by sitting up) Exacerbated By: + other (started after urination and bowel movement this morning ) Associated symptoms: no cough and no other (hematuria or bloody stools) The patient is an 83 year old female who presents to the Emergency Room with complaints of constant lower abdominal pain beginning about three hours ago. The patient reports that her symptoms started after urinating and having a bowel movement this morning. She notes that her symptoms were temporarily alleviated by sitting up. She states that there was no improvement with Gas-X. She denies hematuria, bloody stools, or cough. She reports that she ate breakfast this morning. She notes that she had a recent eye operation. She reports that she has stage IV non-Hodgkin�s lymphoma and most recently had chemotherapy on November 14. She notes a history of retroperitoneal lymph node removal. She denies a history of hysterectomy and states that she still has her gallbladder and appendix. Home Medications Home Medications Medication Instructions Recorded Confirmed Type acetaminophen [Tylenol Extra 1,000 mg PO Q6H PRN 12/23/18 12/23/18 History Strength] amlodipine 5 mg PO QAM 12/23/18 12/23/18 History furosemide 20 mg PO QAM 12/23/18 12/23/18 History lorazepam 0.5 mg PO TID PRN 12/23/18 12/23/18 History multivitamin 1 tab PO QAM 12/23/18 12/23/18 History ranitidine HCl 150 mg PO BID 12/23/18 12/23/18 History Allergies Allergy/AdvReac Type Severity Reaction Status Date / Time cortisone Allergy Severe SWELLING , Verified 12/23/18 13:50 H/A , HALLUCINATIONS chocolate flavor Allergy Unknown RASH Unverified 12/23/18 13:50 diphenhydramine Allergy Unknown Facial Verified 12/23/18 13:50 swelling,redness and burning sensation. Iodinated Contrast- Oral and Allergy Unknown REDDNESS, Verified 12/23/18 13:50 IV Dye SWELLING Past Med/Surg History Medical History Abdominal pain Osteoarthritis Non-Hodgkin lymphoma Benign essential HTN Abdominal lymphadenopathy Anxiety (Acute) DVT prophylaxis Surgical History History of arthroplasty of left knee Family History Other Leukemia Social History Current Living Situation: Alone Other Information That Helps Us Care for You: No Feels Safe at Home: Yes Safety Concerns: Feels Safe At This Time Smoking Status: Former smoker Hx Alcohol Use: No Hx Substance Use: No Beliefs That Will Affect Care: None Preferred Language: Beninese Communication Ability: Effective Magnetic Resonance Imaging Coordinator Required: No Review of Systems See HPI for pertinent positives & negatives. and A total of 10 systems reviewed and were otherwise negative Physical Exam Vital Signs Vital Signs - 24 hr 12/23/18 12:01 12/23/18 12:46 12/23/18 13:32 Temperature 36.9 C Temperature Source Oral Sepsis Recent Fever Within 48 Hours No Sepsis New/Unexplained Change in Mental Status No Sepsis Action Taken by Nursing No Action Required Pulse Rate 110 H Pulse Rate [Right Finger] 97 H Respiratory Rate 18 24 Respiratory Effort / Characteristics Non-Labored Non-Labored Respiratory Depth Normal Normal Respiratory Pattern Blood Pressure 151/55 H Blood Pressure [Right Arm] 157/64 H Blood Pressure Mean 87 Blood Pressure Mean [Right Arm] 95 Blood Pressure Position [Right Arm] Pulse Oximetry 98 98 100 Oxygen Delivery Method Room Air Room Air 12/23/18 15:18 12/23/18 16:53 12/23/18 17:33 Temperature 37.0 C 36.8 C Temperature Source Oral Oral Sepsis Recent Fever Within 48 Hours Sepsis New/Unexplained Change in Mental Status Sepsis Action Taken by Nursing Pulse Rate 86 Pulse Rate [Right Finger] 100 H 92 H Respiratory Rate 28 H 20 Respiratory Effort / Characteristics Non-Labored Respiratory Depth Shallow Respiratory Pattern Tachypnea Blood Pressure Blood Pressure [Right Arm] 147/60 H 155/72 H Blood Pressure Mean Blood Pressure Mean [Right Arm] 89 99 Blood Pressure Position [Right Arm] Pulse Oximetry 100 98 Oxygen Delivery Method Room Air Room Air 12/23/18 18:46 Temperature 36.6 C Temperature Source Oral Sepsis Recent Fever Within 48 Hours Sepsis New/Unexplained Change in Mental Status Sepsis Action Taken by Nursing Pulse Rate Pulse Rate [Right Finger] 94 H Respiratory Rate 20 Respiratory Effort / Characteristics Non-Labored Spontaneous Respiratory Depth Normal Respiratory Pattern Blood Pressure Blood Pressure [Right Arm] 138/73 Blood Pressure Mean Blood Pressure Mean [Right Arm] 94 Blood Pressure Position [Right Arm] Lying Pulse Oximetry 98 Oxygen Delivery Method Room Air GENERAL: Lying on her left side and holding abdomen, in mild distress EYE EXAM: normal conjunctiva. OROPHARYNX: no exudate, no erythema, lips, buccal mucosa, and tongue normal and mucous membranes are moist NECK: supple, no nuchal rigidity, no adenopathy, non-tender LUNGS: Clear to auscultation. Normal chest wall mechanics HEART: no murmurs, S1 normal and S2 normal ABDOMEN: abdomen soft, tender to palpation of the LLQ, normo-active bowel, sounds, no masses, no rebound or guarding. BACK: Back is symmetrical on inspection and there is no deformity, no midline tenderness, no CVA tenderness. SKIN: no rashes and no bruising UPPER EXTREMITIES: upper extremities are grossly normal. LOWER EXTREMITIES: No pitting edema. NEURO EXAM: Normal sensorium, cranial nerves II-XII grossly intact, normal speech, no gross weakness of arms, no gross weakness of legs. Gross sensation intact. Course ED COURSE: Vital signs were reviewed and showed hypertension and tachycardia The patients medical record was reviewed The above diagnostic studies were performed and reviewed. ED treatments and interventions as stated above. 1241: The patient was evaluated in room C6. A complete history and physical examination was performed. 1347: I consulted Jon Phillips PA-C: General Surgery. He will evaluate the patient. 1353: I updated the patient on current results. 1400: Dr. Machado � [facility] Hospitalist was notified of the patient�s case. He will reevaluate the patient for hospitalization. Based on the patients age, coexisting illnesses, exam and lab findings the decision to treat as an inpatient was made. The patient remained stable while under my care. The patient will be evaluated for further management. Consultations Consultation #1: I consulted Jon Phillips PA-C: General Surgery. He will evaluate the patient. Time: 13:47 Consultation #2: Dr. Machado � [facility] Hospitalist was notified of the patient�s case. He will reevaluate the patient for hospitalization. Time: 14:00 Administered Medications Sodium Chloride (Nss 1000ml) 1,000 mls @ 125 mls/hr IV .Q8H TATYANA Stop: 01/22/19 16:41 Last Admin: 12/23/18 17:08 Dose: 125 mls/hr Morphine Sulfate (Morphine Sulfate) 1 mg IV Q2H PRN PRN Reason: Moderate Pain Stop: 01/06/19 17:56 Last Admin: 12/23/18 18:07 Dose: 1 mg Discontinued Medications Acetaminophen (Tylenol) 1,000 mg PO NOW STA Stop: 12/23/18 13:04 Last Admin: 12/23/18 13:09 Dose: 1,000 mg Sodium Chloride (Nss 1000ml) 1,000 mls @ 999 mls/hr IV .Q1H1M TATYANA Stop: 12/23/18 14:00 Last Infusion: 12/23/18 14:06 Dose: 0 mls/hr Admin: 12/23/18 13:00 Dose: 999 mls/hr Ondansetron HCl (Zofran) 4 mg IV NOW STA Stop: 12/23/18 12:50 Last Admin: 12/23/18 13:00 Dose: 4 mg Ranitidine HCl (Zantac) 75 mg PO NOW STA Stop: 12/23/18 17:16 Last Admin: 12/23/18 17:19 Dose: 75 mg Medical Decision Making Differential Diagnosis Differential diagnoses includes but is not limited to gastritis, peptic ulcer disease, GERD, gallbladder disease, pancreatitis, small bowel obstruction, acute coronary syndrome, pericarditis, ischemic bowel, irritable bowel disease, irritable bowel syndrome, appendicitis, diverticulitis, malignancy, hernia, urinary tract infection, torsion, perforation, trauma, infectious. Medical Records Attestation: I reviewed the patient's medical records. Home Medications Current Medication List: was personally reviewed by me Laboratory Data Attestation: I reviewed the patient's lab results. Result diagrams: 12/23/18 12:42 12/23/18 12:42 Lab Results 12/23/18 12/23/18 12/23/18 Range/Units 12:42 12:42 12:42 WBC 13.88 H (4.8-10.8) K/uL RBC 4.06 L (4.2-5.4) M/uL Hgb 13.6 (12.0-16.0) g/dL Hct 39.8 (37-47) % MCV 98.0 (80-100) fL MCH 33.5 (25-34) pg MCHC 34.2 (32-36) g/dL RDW Std Deviation 49.3 H (36.4-46.3) fL RDW Coeff of Kaya 13.8 (11.5-14.5) % Plt Count 331 (130-400) K/uL MPV 9.6 (7.4-10.4) fL Immature Gran % (Auto) 7.0 % Neut % (Auto) 83.3 % Lymph % (Auto) 4.7 % [place] % (Auto) 4.7 % Eos % (Auto) 0.1 % Baso % (Auto) 0.2 % Immature Gran # (Auto) 0.97 H (0.00-0.02) K/uL Neut # (Auto) 11.57 H (1.4-6.5) K/uL Lymph # (Auto) 0.65 L (1.2-3.4) K/uL [place] # (Auto) 0.65 H (0.11-0.59) K/uL Eos # (Auto) 0.01 (0-0.5) K/uL Baso # (Auto) 0.03 (0-0.2) K/uL PT (9.0-12.0) Seconds INR (0.9-1.1) APTT (21.0-31.0) Seconds PTT Ratio Sodium 137 (136-145) mmol/L Potassium 3.5 (3.5-5.1) mmol/L Chloride 105 (98-107) mmol/L Carbon Dioxide 20 L (21-32) mmol/L Anion Gap 12.0 H (3-11) BUN 22 H (7-18) mg/dl Creatinine 1.26 H (0.6-1.2) mg/dl Est Cr Clr Drug Dosing Not Reportable Est GFR ( Amer) 45.3 Est GFR (Non-Af Amer) 39.1 BUN/Creatinine Ratio 17.5 (10-20) Glucose 104 H (70-99) mg/dl Lactate (0.4-2.0) mmol/L Calcium 10.1 (8.5-10.1) mg/dl Total Bilirubin 0.6 (0.2-1) mg/dl AST 20 (15-37) U/L ALT 17 (12-78) U/L Alkaline Phosphatase 103 (45-117) U/L Total Protein 7.7 (6.4-8.2) gm/dl Albumin 4.0 (3.4-5.0) gm/dl Globulin 3.7 (2.5-4.0) gm/dl Albumin/Globulin Ratio 1.1 (0.9-2) Amylase 66 (25-115) U/L Lipase 135 (73-393) U/L Urine Color Urine Appearance (Clear) Urine pH (4.5-7.5) Ur Specific Cache (1.000-1.030) Urine Protein (Negative) Urine Glucose (UA) (Negative) Urine Ketones (Negative) Urine Blood (Negative) Urine Nitrite (Negative) Urine Bilirubin (Negative) Urine Urobilinogen (Negative) Ur Leukocyte Esterase (Negative) Urine WBC (Auto) (0-5) /hpf Urine RBC (Auto) (0-4) /hpf U Hyaline Cast (Auto) (0-5) /lpf U Epithel Cells (Auto) (0-5) /lpf Urine Bacteria (Auto) (Negative) 12/23/18 12/23/18 12/23/18 Range/Units 12:42 13:01 15:44 WBC (4.8-10.8) K/uL RBC (4.2-5.4) M/uL Hgb (12.0-16.0) g/dL Hct (37-47) % MCV (80-100) fL MCH (25-34) pg MCHC (32-36) g/dL RDW Std Deviation (36.4-46.3) fL RDW Coeff of Kaya (11.5-14.5) % Plt Count (130-400) K/uL MPV (7.4-10.4) fL Immature Gran % (Auto) % Neut % (Auto) % Lymph % (Auto) % [place] % (Auto) % Eos % (Auto) % Baso % (Auto) % Immature Gran # (Auto) (0.00-0.02) K/uL Neut # (Auto) (1.4-6.5) K/uL Lymph # (Auto) (1.2-3.4) K/uL [place] # (Auto) (0.11-0.59) K/uL Eos # (Auto) (0-0.5) K/uL Baso # (Auto) (0-0.2) K/uL PT 10.9 (9.0-12.0) Seconds INR 1.1 (0.9-1.1) APTT 22.4 (21.0-31.0) Seconds PTT Ratio 0.9 Sodium (136-145) mmol/L Potassium (3.5-5.1) mmol/L Chloride (98-107) mmol/L Carbon Dioxide (21-32) mmol/L Anion Gap (3-11) BUN (7-18) mg/dl Creatinine (0.6-1.2) mg/dl Est Cr Clr Drug Dosing Est GFR ( Amer) Est GFR (Non-Af Amer) BUN/Creatinine Ratio (10-20) Glucose (70-99) mg/dl Lactate 4.0 H* (0.4-2.0) mmol/L Calcium (8.5-10.1) mg/dl Total Bilirubin (0.2-1) mg/dl AST (15-37) U/L ALT (12-78) U/L Alkaline Phosphatase (45-117) U/L Total Protein (6.4-8.2) gm/dl Albumin (3.4-5.0) gm/dl Globulin (2.5-4.0) gm/dl Albumin/Globulin Ratio (0.9-2) Amylase (25-115) U/L Lipase (73-393) U/L Urine Color Yellow Urine Appearance Clear (Clear) Urine pH 8.0 H (4.5-7.5) Ur Specific Cache 1.014 (1.000-1.030) Urine Protein Negative (Negative) Urine Glucose (UA) Negative (Negative) Urine Ketones Negative (Negative) Urine Blood Negative (Negative) Urine Nitrite Negative (Negative) Urine Bilirubin Negative (Negative) Urine Urobilinogen Negative (Negative) Ur Leukocyte Esterase Trace H (Negative) Urine WBC (Auto) 5-10 H (0-5) /hpf Urine RBC (Auto) 0-4 (0-4) /hpf U Hyaline Cast (Auto) 0 (0-5) /lpf U Epithel Cells (Auto) 10-20 H (0-5) /lpf Urine Bacteria (Auto) Negative (Negative) Imaging Data Radiologist's Impression: Radiology results as stated below per my review and the radiologist's interpretation: CT abd pelvis wo con CT DOSE: 669.55 mGycm HISTORY: Pain llq abd pain TECHNIQUE: Multiaxial CT images of the abdomen and pelvis were performed without contrast. A dose lowering technique was utilized adhering to the principles of ALARA. COMPARISON STUDY: 11/07/2018 FINDINGS: Lung bases are clear. Liver spleen and pancreas are unremarkable. Kidneys are negative for hydronephrosis. There is a left renal extrarenal pelvis which is unchanged. Retroperitoneal and para-aortic adenopathy is stable. Pelvic and inguinal adenopathy primarily on the left is also stable. Urinary tracts show no obstructive change. Bladder is midline with no contained calcifications. Bowel pattern is remarkable for scattered colonic diverticuli. There is no evidence for acute diverticulitis. The bowel pattern is nonobstructive. Considerable atherosclerotic change abdominal aorta as well as pelvic arterial vasculature considered unchanged. IMPRESSION: 1. Left iliac, inguinal, as well as abdominal]. Adenopathy. 2. This is considered stable compared to the prior study with no significant interval change. 3. Nonobstructive bowel pattern. 4.. Fibroid Uterus unchanged from the prior study. 5. No acute process of the abdomen or pelvis. The above report was generated using voice recognition software. It may contain grammatical, syntax or spelling errors. Electronically signed by: Chan Dinh M.D. 12/23/2018 1:34 PM US duplex mesenteric CLINICAL HISTORY: Lower abdominal pain and elevated lactic acid. Evaluate for mesenteric artery stenosis. COMPARISON STUDY: No previous studies for comparison. FINDINGS: The inferior mesenteric artery was not visualized. The peak systolic velocity within the celiac artery was 171 cm/s. Peak systolic velocity within the superior mesenteric artery which 323 cm/s. The peak systolic velocity within the hepatic artery was 132 cm/s. The peak systolic velocity within the splenic artery was 126 cm/s. IMPRESSION: 1. Elevated peak systolic velocity at the superior mesenteric artery origin. 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 CT angiography should be considered in follow-up for confirmation. Electronically signed by: Maxi Jolly M.D. 12/23/2018 4:51 PM Blood Pressure Blood Pressure Findings: Elevated blood pressure Blood Pressure Disposition: further management by hospitalist JOSSELYN Narrative Patient is an 83-year-old female who presents the ER with left lower quadrant abdominal pain. Vitals were unremarkable. Lab was obtained and showed a leukocytosis of 14,000. INR was unremarkable. BMP shows a CO2 of 20. Lactate was elevated at 4. LFTs lipase was normal. UA was unremarkable. CT was performed without IV contrast due to allergy. Exam was not consistent with ischemia. Did discuss with general surgery. Discussed with the hospitalist update the patient and the daughter at bedside. Patient was given Tylenol. She declined any other narcotics. She was given IV fluids. Ordered Dopplers of the mesentery and patient was admitted to the hospitalist for further workup. Of note she was feeling sniffily better on admission. Impression & Plan Abdominal pain Discharge Plan Visit Data *Final* Discharge Date/Time: 12/23/18 15:41 Chief Complaint: Abdominal Pain Stated Complaint: LOWER ABD PAIN ED Provider: Pedro Navarrete Discharge Problem: Abdominal pain Patient Disposition: Admitted As Inpatient Discharge Instructions Interventions: ED Discharge Assessment Last Done: 12/23/18 15:41 The scribe's documentation has been prepared under my direction and personally reviewed by me in its entirety. I confirm that the note above accurately reflects all work, treatment, procedures, and medical decision making performed by me.
[2018-12-23] MEDS: HEPARIN SOD 5,000 UNIT/0.5 ML VIAL SQ SCH (21:15)
[2018-12-23 23:07] LABS: Hematocrit (blood only) 32.6 % (37-47); Hemoglobin 11.1 g/dL (12.0-16.0); Mean Platelet Volume 9.2 fL (7.4-10.4); Platelet Count 276 K/uL (130-400); RDW Coefficient of Variation 14.6 % (11.5-14.5); RDW Standard Deviation 51.8 fL (36.4-46.3); Red Blood Count 3.36 M/uL (4.2-5.4); White Blood Count 16.23 K/uL (4.8-10.8)
[2018-12-23] MEDS: ACETAMINOPHEN 325 MG TAB PO PRN (23:11)
[2018-12-23 23:28] LABS: Albumin Globulin Ratio 0.9 (0.9-2); Albumin Level 2.8 gm/dl (3.4-5.0); BUN Creatinine Ratio 17.8 (10-20); Bilirubin,Total 0.6 mg/dl (0.2-1); Calcium 7.9 mg/dl (8.5-10.1); Creatinine Clr Calc Pharmacy 32.7 ml/min; Est GFR (Non-African American) 46.6; Globulin 3.1 gm/dl (2.5-4.0); Potassium 3.6 mmol/L (3.5-5.1); Total Protein 5.9 gm/dl (6.4-8.2)
[2018-12-23 23:44] LABS: ALC (manual) 0.86 K/uL (1.2-3.4); Dohle Bodies 1+; Lymphocytes # (manual) 0.86 K/uL (1.2-3.4); Lymphocytes % (manual) 5.3 %; Metamyelocytes # (manual) 1.14 K/uL (0-0); Myelocytes # (manual) 0.42 K/uL (0-0); Myelocytes % (manual) 2.6 %; Neutrophils % (manual) 85.1 %; Toxic Vacuolation Occasional
[2018-12-24] MEDS: SODIUM CHLORIDE 0.9% 1000ML 1,000 ML IV SCH ×3 (01:28→15:58)
[2018-12-24] MEDS: ACETAMINOPHEN 325 MG TAB PO PRN (07:06)
[2018-12-24 07:13] LABS: Hematocrit (blood only) 32.3 % (37-47); Hemoglobin 10.7 g/dL (12.0-16.0); Mean Corpuscular Hgb Conc 33.1 g/dL (32-36); Mean Corpuscular Volume 98.8 fL (80-100); Mean Platelet Volume 9.8 fL (7.4-10.4); Platelet Count 268 K/uL (130-400); RDW Coefficient of Variation 14.9 % (11.5-14.5); RDW Standard Deviation 53.5 fL (36.4-46.3); Red Blood Count 3.27 M/uL (4.2-5.4); White Blood Count 14.09 K/uL (4.8-10.8)
[2018-12-24 07:25] LABS: INR 1.2 (0.9-1.1); Prothrombin Time 11.7 Seconds (9.0-12.0)
[2018-12-24 07:42] LABS: Albumin Level 2.6 gm/dl (3.4-5.0); Calcium 7.7 mg/dl (8.5-10.1); Creatinine Clr Calc Pharmacy 34.8 ml/min; Est GFR (African American) 57.8; Est GFR (Non-African American) 49.9; Magnesium 1.4 mg/dl (1.8-2.4); Potassium 3.5 mmol/L (3.5-5.1)
[2018-12-24 07:44] LABS: Albumin Globulin Ratio 0.9 (0.9-2); Phosphorus 2.8 mg/dl (2.5-4.9); Total Protein 5.6 gm/dl (6.4-8.2)
[2018-12-24] MEDS: HEPARIN SOD 5,000 UNIT/0.5 ML VIAL SQ SCH ×3 (09:24→21:21)
[2018-12-24] MEDS: MULTIVITAMIN TAB PO SCH (09:25)
[2018-12-24] MEDS: AMLODIPINE BESYLATE 5 MG TAB PO SCH (09:26)
--- NOTE | 2018-12-24 09:42 | Surgery Progress Note ---
Date of Service December 24, 2018 Assessment & Plan (1) Abdominal pain: 12/24/2018 Patient seen and examined with Dr. Chandler. Abdominal pain that brought patient to ED has resolved. Palpable lymph node in left groin- mild tenderness. Ok to advance patient's diet and if she continues to do well can consider D/C later today. Discharge per primary team. 12/23/2018 No acute abdominal findings. Ultrasound was in progress during my exam. Will follow. Subjective Patient resting comfortably in bed- abdominal pain has significantly improved- some mild discomfort bilaterally in inguinal region. States that she believes there are lymph nodes there. Denies nausea. Feeling much better than when she was admitted. Physical Exam 2 Vital Signs (Past 24 Hours): Last Vital Signs Temp 38.1 C H 12/24/18 07:46 Pulse 83 12/24/18 09:25 Resp 20 12/24/18 07:46 BP 123/63 12/24/18 09:25 Pulse Ox 90 12/24/18 07:46 Gastrointestinal (Abdomen): Percussion/Palpation: + abdomen tender (mild tenderness with palpation bilaterally in inguinal region. ) and abdomen soft; no guarding and abdomen not rigid _ (1) Abdominal pain Abdominal location: lower abdomen, unspecified Qualified Code(s): R10.30 - Lower abdominal pain, unspecified
--- NOTE | 2018-12-24 11:26 | Consultation Report ---
DATE OF CONSULTATION: 12/24/2018 REPORT TITLE: Oncology Consultation. REASON FOR CONSULTATION: Subacute-onset lower abdominal pain in this 83-year-old female patient with history of follicular non-Hodgkin lymphoma. HISTORY OF PRESENT ILLNESS: Radha Bonilla is a very pleasant 83-year-old elderly female who is well known to [facility], currently under Dr. Persaud's care for an indolent follicular non-Hodgkin lymphoma. The patient has been receiving maintenance rituximab every 2 months. Her next course is due in early January. Apparently yesterday, the patient developed lower abdominal pain. She described it as sharp and stabbing with no alleviating or aggravating features. She readily admits to intermittent constipation and diarrhea, but denies any fevers or chills leading up to her discomfort. Apparently on the morning of admission, she was getting ready to go somewhere in her automobile and developed a left lower abdominal pain, which caused her to double over and could barely walk. She contacted her daughter and subsequently her primary care physician; both were insistent that she come to the Emergency Room. CT scan of the abdomen and pelvis was performed prior to admission revealing a nonobstructive bowel pattern and fibroid uterus. At bedside this morning, Radha's pain for the most part has completely resolved. She feels well and most likely will be discharged later. She was seen by the general surgery service who recommends the same. PAST MEDICAL HISTORY: Includes follicular non-Hodgkin lymphoma, osteoarthritis, benign hypertension, anxiety. PAST SURGICAL HISTORY: Status post left knee arthroplasty. CURRENT HOME MEDICATIONS: Include amlodipine 5 mg p.o. daily, furosemide 20 mg p.o. daily, lorazepam 0.5 mg p.o. t.i.d. p.r.n., ranitidine 150 mg p.o. b.i.d., multivitamin 1 tablet p.o. daily and she takes Tylenol p.r.n. ALLERGIES: CORTISONE, CHOCOLATE, DIPHENHYDRAMINE AND IV DYE. SOCIAL HISTORY: The patient is retired. She is a nonsmoker, nondrinker. FAMILY HISTORY: Positive for leukemia. REVIEW OF SYSTEMS: As per HPI, most notably for lower quadrant abdominal pain. CONSTITUTIONAL: No fevers, chills or sweats. Positive for intermittent nausea but reports no emesis. She is not anorexic or losing weight. SKIN: No rashes or lesions. No history of dermatoses. HEENT: She denies headaches, lightheadedness or dizziness. No acute visual or hearing deficits. No sinus symptoms, sore throat or dysphagia. LYMPHATICS: Positive for history of lymphoproliferative disease. CARDIAC: Negative for coronary artery disease, no angina or palpitations. PULMONARY: No history of COPD. She is not short of breath, dyspneic or orthopneic. No cough or hemoptysis. GASTROINTESTINAL: As per HPI. GENITOURINARY: No hematuria, dysuria, or urinary incontinence. MUSCULOSKELETAL: No profound weakness. She suffers from osteoarthritis. NEUROLOGIC: Negative for seizure, stroke, or migraine headache. HEMATOLOGIC: Positive for normocytic normochromic anemia and mild leukocytosis. PHYSICAL EXAMINATION: GENERAL: A very pleasant 83-year-old female patient, awake, alert and appropriate, in no acute distress. VITAL SIGNS: Temperature 38.1, pulse 83, respiratory rate 20, blood pressure 123/63. SKIN: Warm, dry, noncyanotic without petechia, rash or ecchymosis. HEENT: Head: Atraumatic, normocephalic. Eyes: PERRLA, EOMI. Sclerae nonicteric. No conjunctival injection. ENT: Nares are patent without rhinorrhea or discharge. Throat is clear. Tongue is midline. Mucous membranes are moist with no obvious buccal lesions or ulcerations. NECK: Supple. Trachea is midline. No JVD or thyromegaly appreciated. LYMPHATICS: No palpable cervical, supraclavicular or axillary nodes. HEART: Regular rate and rhythm. No clicks, rubs, murmurs or gallops. LUNGS: Clear to auscultation bilaterally. ABDOMEN: Soft, nontender, nondistended, without palpable hepatosplenomegaly. EXTREMITIES: Musculoskeletal strength and pulses in all 4 quadrants are equal. No clubbing, cyanosis or edema. NEUROLOGICAL: She is awake, alert and oriented x3. Cranial nerves II-XII are intact. LABORATORY DATA: Urine culture is positive for gram-positive cocci. WBC count 14,090, hemoglobin 10.7, platelet count 268,000. Sodium 138, potassium 3.5, chloride 110, carbon dioxide 21, creatinine 1.03, BUN 20. Magnesium is slightly decreased at 1.4, calcium slightly decreased at 7.7, albumin 2.6. IMPRESSION: 1. Urinary tract infection. 2. Lower quadrant abdominal pain. 3. Hypoalbuminemia. 4. Hypomagnesemia. 5. Leukocytosis (neutrophilia). PLAN: I had the pleasure of visiting with Radha this morning. Clinically, she appears to be much improved from presentation. Urine culture is positive for gram-positive cocci and should be treated appropriately. I suspect that may be the underlying cause of her abdominal pain. CT scan of the abdomen and pelvis showed no evidence of bowel etiology or encroaching progressive lymphadenopathy. Will advise Dr. Persaud of the patient's admission, but I do not anticipate she will be staying more than a day or two. She is due to resume rituximab in our office in early January. I have nothing further to add. Agree with the current medical management. Thank you very much for allowing me to participate in her care. If you have any questions or concerns, contact me at any time. JAVIER
--- NOTE | 2018-12-24 11:47 | XRay Report ---
KUB CLINICAL HISTORY: abdominal pain COMPARISON STUDY: CT of the abdomen and pelvis December 23, 2018. FINDINGS: The bowel gas pattern is normal. Visualized skeletal structures are unremarkable. IMPRESSION: No evidence for a bowel obstruction. Electronically signed by: Benigno Carbajal M.D. 12/24/2018 11:46 AM
[2018-12-24] MEDS: predniSONE 50 MG TAB PO SCH ×2 (14:11→19:33)
--- NOTE | 2018-12-24 14:15 | Hospitalist Progress Note ---
Date of Service December 24, 2018 Assessment & Plan (1) Abdominal lymphadenopathy: (2) Abdominal pain: (3) Non-Hodgkin lymphoma: (4) Benign essential HTN: (5) Osteoarthritis: (6) Anxiety: (7) DVT prophylaxis: 83 yo F with PMHx of Nonhodgkin's lymphoma origionally diagnosed in 1999, one abdominal surgery in the past where a lymph node was laproscopically removed ~7 years ago, HTN and osteoarthritis admitted on December 23, 2018 because of abdominal pain Abdominal lymphadenopathy: Episode of abdominal pain with possible superior mesenteric artery stenosis cont med surg with tele CT noncontrast without acute findings, may repeat CT angio of the abdomen to evaluate for ischemia. Renal function is stable, SMA ultrasound : elevated peak systolic velocity at the superior mesenteric artery origin. 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 CT angiography should be considered in follow-up for confirmation. Decrease IV fluid Check abdominal CT angios to rule out SMA stenosis Allergic to IV dye, after discussed the risk and benefit, we will go ahead to desensitize the possible energy, and then will do the CT angios studies, discussed this with patient and family in bedside, they all agreed to taking the risk Start clear liquid advance as tolerated, hx Non-Hodgkin lymphoma: follow with Dr. Persaud as an outpatient, Rituxin scheduled for 01/09/19 Benign essential HTN: Continue norvasc Osteoarthritis: Continue tylenol for pain prn Anxiety: Continue lorazepam 0.5 mg TID, pt typically may only use this once daily. DVT prophylaxis: heparin subq Discussed with patient and family answered all questions Subjective No pain, feel hungry, no other complaint, conversational, Review of Systems Constitutional: negative weakness, or fatigue Respiratory: no cough, sputum, wheezing, or dyspnea on exertion Cardiac: No chest pain, No orthopnea, No PND, No claudication, No palpitations , Abdomen: No pain, No nausea, No vomiting, No diarrhea, No constipation Musculoskeletal: No joint pain, No muscle pain, No swelling, No calf pain, No problem reported : No dysuria, No urinary frequency, No incontinence, No hematuria Neurologic: No paralysis, No weakness, No numbness/tingling, No vertigo, No balance problems Psychiatric: No depression symptoms, No anhedonism, No anxiety, No insomnia, No substance abuse Heme: No abnormal bleeding/bruising, No clotting problems, No swollen lymph nodes, No night sweats Skin: No rash, No itch, No new/changing skin lesions, No color change, No bleeding Gastrointestinal: as per Subjective / HPI; no vomiting, no constipation, no diarrhea/loose stools, no blood in stools and no melena Physical Exam 2 Vital Signs (Past 24 Hours): Last Vital Signs Temp 36.3 C L 12/24/18 11:53 Pulse 78 12/24/18 11:53 Resp 18 12/24/18 11:53 BP 115/61 12/24/18 11:53 Pulse Ox 96 12/24/18 11:53 Physical Exam: General Appearance: WD/WN, no apparent distress, Eyes: normal inspection, PERRL, EOMI, sclerae normal ENT: normal ENT inspection, hearing grossly normal, pharynx normal Neck: supple, no adenopathy, thyroid normal, no JVD, no carotid bruits, trachea midline Respiratory/Chest: chest non-tender, normal breath sounds, no respiratory distress, no accessory muscle use, breath sounds, rales, wheezing Cardiovascular: regular rate, rhythm, no JVD, no murmur Abdomen: normal bowel sounds, non tender, soft, no organomegaly, Extremities: normal range of motion, non-tender, normal inspection, joint has no limited range of motion, capillary refill is normal, no cyanosis clubbing Neurologic/Psychiatric: monotype setter II-XII nml as tested, no motor/sensory deficits, alert, normal mood/affect, oriented x 3 Skin: normal color, warm/dry, no rash Lymphatic: no adenopathy Results & Data Laboratory Results Laboratory Results - last 24 hr 12/23/18 12/23/18 12/23/18 12:42 12:42 15:44 WBC RBC Hgb Hct MCV MCH MCHC RDW Std Deviation RDW Coeff of Kaya Plt Count MPV Neutrophils % (Manual) Lymphocytes % (Manual) Metamyelocytes % (Man) Myelocytes % (Man) Neutrophils # (Manual) Total Absolute Neuts Lymphocytes # (Manual) Total Abs Lymphocytes Metamyelocytes # (Man) Myelocytes # (Manual) Toxic Vacuolation Dohle Bodies PT 10.9 INR 1.1 APTT 22.4 PTT Ratio 0.9 Sodium Potassium Chloride Carbon Dioxide Anion Gap BUN Creatinine Est Cr Clr Drug Dosing Est GFR ( Amer) Est GFR (Non-Af Amer) BUN/Creatinine Ratio Glucose Lactate Calcium Phosphorus Magnesium Total Bilirubin AST ALT Alkaline Phosphatase Total Protein Albumin Globulin Albumin/Globulin Ratio Amylase 66 Urine Color Yellow Urine Appearance Clear Urine pH 8.0 H Ur Specific Harrell 1.014 Urine Protein Negative Urine Glucose (UA) Negative Urine Ketones Negative Urine Blood Negative Urine Nitrite Negative Urine Bilirubin Negative Urine Urobilinogen Negative Ur Leukocyte Esterase Trace H Urine WBC (Auto) 5-10 H Urine RBC (Auto) 0-4 U Hyaline Cast (Auto) 0 U Epithel Cells (Auto) 10-20 H Urine Bacteria (Auto) Negative 12/23/18 12/23/18 12/23/18 22:50 22:50 22:50 WBC 16.23 H RBC 3.36 L Hgb 11.1 L Hct 32.6 L MCV 97.0 MCH 33.0 MCHC 34.0 RDW Std Deviation 51.8 H RDW Coeff of Kaya 14.6 H Plt Count 276 MPV 9.2 Neutrophils % (Manual) 85.1 Lymphocytes % (Manual) 5.3 Metamyelocytes % (Man) 7.0 Myelocytes % (Man) 2.6 Neutrophils # (Manual) 13.81 H Total Absolute Neuts 13.81 H Lymphocytes # (Manual) 0.86 L Total Abs Lymphocytes 0.86 L Metamyelocytes # (Man) 1.14 H Myelocytes # (Manual) 0.42 H Toxic Vacuolation Occasional Dohle Bodies 1+ PT INR APTT PTT Ratio Sodium 138 Potassium 3.6 Chloride 109 H Carbon Dioxide 21 Anion Gap 8.0 BUN 19 H Creatinine 1.09 Est Cr Clr Drug Dosing 32.7 Est GFR ( Amer) 54.0 Est GFR (Non-Af Amer) 46.6 BUN/Creatinine Ratio 17.8 Glucose 110 H Lactate 1.8 Calcium 7.9 L D Phosphorus Magnesium Total Bilirubin 0.6 AST 26 ALT 16 Alkaline Phosphatase 64 Total Protein 5.9 L D Albumin 2.8 L Globulin 3.1 Albumin/Globulin Ratio 0.9 Amylase Urine Color Urine Appearance Urine pH Ur Specific Harrell Urine Protein Urine Glucose (UA) Urine Ketones Urine Blood Urine Nitrite Urine Bilirubin Urine Urobilinogen Ur Leukocyte Esterase Urine WBC (Auto) Urine RBC (Auto) U Hyaline Cast (Auto) U Epithel Cells (Auto) Urine Bacteria (Auto) 12/24/18 12/24/18 12/24/18 06:16 06:16 06:16 WBC 14.09 H RBC 3.27 L Hgb 10.7 L Hct 32.3 L MCV 98.8 MCH 32.7 MCHC 33.1 RDW Std Deviation 53.5 H RDW Coeff of Kaya 14.9 H Plt Count 268 MPV 9.8 Neutrophils % (Manual) Lymphocytes % (Manual) Metamyelocytes % (Man) Myelocytes % (Man) Neutrophils # (Manual) Total Absolute Neuts Lymphocytes # (Manual) Total Abs Lymphocytes Metamyelocytes # (Man) Myelocytes # (Manual) Toxic Vacuolation Dohle Bodies PT 11.7 INR 1.2 H APTT PTT Ratio Sodium 138 Potassium 3.5 Chloride 110 H Carbon Dioxide 21 Anion Gap 7.0 BUN 20 H Creatinine 1.03 Est Cr Clr Drug Dosing 34.8 Est GFR ( Amer) 57.8 Est GFR (Non-Af Amer) 49.9 BUN/Creatinine Ratio 19.0 Glucose 97 Lactate Calcium 7.7 L Phosphorus 2.8 Magnesium 1.4 L Total Bilirubin 1.0 AST 30 ALT 14 Alkaline Phosphatase 66 Total Protein 5.6 L Albumin 2.6 L Globulin 3.0 Albumin/Globulin Ratio 0.9 Amylase Urine Color Urine Appearance Urine pH Ur Specific Harrell Urine Protein Urine Glucose (UA) Urine Ketones Urine Blood Urine Nitrite Urine Bilirubin Urine Urobilinogen Ur Leukocyte Esterase Urine WBC (Auto) Urine RBC (Auto) U Hyaline Cast (Auto) U Epithel Cells (Auto) Urine Bacteria (Auto) _ (1) Abdominal pain Abdominal location: lower abdomen, unspecified Qualified Code(s): R10.30 - Lower abdominal pain, unspecified
[2018-12-24] MEDS ORDERED: ALUMINUM/MAGNESIUM SUSP 30 ML UDC PO STA (17:56)
[2018-12-24] MEDS: MoRPHine SULFATE 4 MG/ML 1 ML CARP\\VIAL IV PRN (19:32)
[2018-12-24] MEDS: FAMOTIDINE 20 MG TAB PO SCH (21:20)
[2018-12-25] MEDS: predniSONE 50 MG TAB PO SCH (01:01)
[2018-12-25] MEDS ORDERED: OPTIRAY 320 125ml IV PRN (02:29)
[2018-12-25] MEDS: HEPARIN SOD 5,000 UNIT/0.5 ML VIAL SQ SCH ×2 (06:16→13:05)
[2018-12-25] MEDS: SODIUM CHLORIDE 0.9% 1000ML 1,000 ML IV SCH (06:16)
[2018-12-25 06:23] LABS: Hematocrit (blood only) 32.4 % (37-47); Mean Corpuscular Volume 98.2 fL (80-100); Mean Platelet Volume 9.3 fL (7.4-10.4); Platelet Count 234 K/uL (130-400); RDW Coefficient of Variation 14.4 % (11.5-14.5); RDW Standard Deviation 52.4 fL (36.4-46.3); White Blood Count 11.89 K/uL (4.8-10.8)
[2018-12-25 06:46] LABS: Basophils # (auto) 0.01 K/uL (0-0.2); Basophils % (auto) 0.1 %; Dohle Bodies 1+; Immature Granulocytes # (auto) 0.76 K/uL (0.00-0.02); Immature Granulocytes % (auto) 6.4 %; Lymphocytes # (auto) 0.68 K/uL (1.2-3.4); Lymphocytes % (auto) 5.7 %; Monocytes # (auto) 0.19 K/uL (0.11-0.59); Monocytes % (auto) 1.6 %; Neutrophils # (auto) 10.25 K/uL (1.4-6.5); Neutrophils % (auto) 86.2 %
[2018-12-25 06:54] LABS: Alanine Aminotransferase 16 U/L (12-78); Albumin Level 2.7 gm/dl (3.4-5.0); Aspartate Aminotransferase 29 U/L (15-37); BUN Creatinine Ratio 23.4 (10-20); Bilirubin Direct < 0.1 mg/dl (0-0.2); Blood Urea Nitrogen 20 mg/dl (7-18); Carbon Dioxide 21 mmol/L (21-32); Chloride 111 mmol/L (98-107); Creatinine Clr Calc Pharmacy 42.2 ml/min; Est GFR (African American) 72.9; Est GFR (Non-African American) 62.9; Glucose 138 mg/dl (70-99); Magnesium 1.7 mg/dl (1.8-2.4); Sodium 139 mmol/L (136-145)
[2018-12-25 06:59] LABS: Albumin Globulin Ratio 0.8 (0.9-2); Alkaline Phosphatase 68 U/L (45-117); Bilirubin,Total 0.4 mg/dl (0.2-1); Globulin 3.5 gm/dl (2.5-4.0); Phosphorus 2.5 mg/dl (2.5-4.9); Total Protein 6.2 gm/dl (6.4-8.2)
--- NOTE | 2018-12-25 07:15 | CT Scan Report ---
CT angio abdomen w con CT DOSE: 647.73 mGycm CLINICAL HISTORY: Abdominal pain. Superior mesenteric artery stenosis. Abnormal ultrasound study, his tory of lymphoma TECHNIQUE: CT angiographic imaging was performed in a dynamic helical fashion during intravenous admi nistration of 110 cc of Optiray 320. MIP imaging was acquired. A dose lowering technique was utilize d adhering to the principles of ALARA. COMPARISON STUDY: Mesenteric ultrasound performed 12/23/2018, noncontrast CT scan dated 12/23/2018 FINDINGS: The visualized portions the lung bases reveal dependent atelectasis. No hepatic masses are visualized this arterial phase study. No gallbladder abnormalities are visualized. No splenic masses are visualized this arterial phase study. No pancreatic masses are visualized. No renal masses are visualized. There is retroperitoneal para-aortic adenopathy, similar to the preceding study. There are diffuse atheromatous changes present within the abdominal aorta. The inferior mesenteric artery is patent. There are single bilateral renal arteries. There is an estimated 50% proximal right renal artery sten osis. There is no evidence of celiac artery stenosis. There is a 50% diameter narrowing of the proximal superior mesenteric artery. IMPRESSION: 1. Stable para-aortic retroperitoneal lymphadenopathy 2. 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 50% stenosis of the proximal right renal artery 4. Bibasilar atelectatic changes Electronically signed by: Maxi Jolly M.D. 12/25/2018 7:14 AM
[2018-12-25] MEDS ORDERED: MAGNESIUM SULFATE / D5W 1 GM/100 ML BAG IV ONE (08:00)
[2018-12-25] MEDS ORDERED: MAGNESIUM OXIDE 400 MG TAB PO SCH (09:00)
[2018-12-25] MEDS: MULTIVITAMIN TAB PO SCH (09:15)
[2018-12-25] MEDS: FAMOTIDINE 20 MG TAB PO SCH (09:15)
[2018-12-25] MEDS: AMLODIPINE BESYLATE 5 MG TAB PO SCH (09:15)
[2018-12-25] MEDS ORDERED: MAGNESIUM CITRATE 296 ML/BTL PO PRN (09:55)
[2018-12-25] MEDS ORDERED: POLYETHYLENE (MIRALAX) 17 GM PACK PO SCH (10:00)
--- NOTE | 2018-12-25 10:07 | Discharge Summary ---
Date of Service December 25, 2018 Admission HPI Per Admitting Provider This is a 83 yo F with PMHx of Nonhodgkin's lymphoma origionally diagnosed in 1999, actively being treated with Rituxin due to recurrence. Her most recent chemotherapy was at the end of November, and next sheduled tx is 01/09/19. She has had one abdominal surgery in the past where a lymph node was laproscopically removed ~7 years ago. She also has PMHx of HTN and osteoarthritis. Pt notes that this morning she was getting ready to drive her car, and all of a sudden developed left lower abdominal pain which caused her to double over and could barely walk, paired with ongoing cramping at this time , as well as radiation of pain into the groin. Since being in the ER she was given tylenol 1000 mg which has dulled the pain, and can tolerate palpation. She admits to nausea when the pain occurred, but did not vomit. Her bowels moved 1x this morning and were soft, brown and formed, no melena or BRBPR. Pt reports burning with urination today with abdominal pain, but denies increased frequency or hematuria. Principal Diagnosis no Discharge Data Allergies Allergy/AdvReac Type Severity Reaction Status Date / Time cortisone Allergy Severe SWELLING , Verified 12/23/18 13:50 H/A , HALLUCINATIONS chocolate flavor Allergy Unknown RASH Unverified 12/23/18 13:50 diphenhydramine Allergy Unknown Facial Verified 12/23/18 13:50 swelling,redness and burning sensation. Iodinated Contrast- Oral and Allergy Unknown REDDNESS, Verified 12/23/18 13:50 IV Dye SWELLING Consultations 12/23/18 13:51 ED Decision to Admit Stat 12/23/18 16:42 Consult Case Management - Discharge Planning Routine Consult General Surgery Routine Consult Oncology Routine 12/25/18 07:36 Consult Vascular Surgery Routine Ordered Studies 12/23/18 12:49 CT abd pelvis wo con Stat 12/23/18 13:52 US duplex mesenteric Stat 12/24/18 07:25 CT angio abdomen w con Urgent Hospital Course (1) Abdominal lymphadenopathy: (2) Abdominal pain: (3) Non-Hodgkin lymphoma: (4) Benign essential HTN: (5) Osteoarthritis: (6) Anxiety: (7) DVT prophylaxis: 83 yo F with PMHx of Nonhodgkin's lymphoma origionally diagnosed in 1999, one abdominal surgery in the past where a lymph node was laproscopically removed ~7 years ago, HTN and osteoarthritis admitted on December 23, 2018 because of abdominal pain, totally resolved, Abdominal lymphadenopathy: Episode of abdominal pain with possible superior mesenteric artery stenosis, etiology unknown cont med surg with tele CT noncontrast without acute findings, may repeat CT angio of the abdomen to evaluate for ischemia. Renal function is stable, SMA ultrasound : elevated peak systolic velocity at the superior mesenteric artery origin. 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 CT angiography should be considered in follow-up for confirmation. Abdominal CT angios studies per report: IMPRESSION: 1. Stable para-aortic retroperitoneal lymphadenopathy 2. 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 50% stenosis of the proximal right renal artery 4. Bibasilar atelectatic changes Allergic to IV dye, after discussed the risk and benefit, we got desensitize the possible allergy , had CT angios studies, she tolerated well, no any side effect, no any side effect of hallucination hx Non-Hodgkin lymphoma: follow with Dr. Persaud as an outpatient, Rituxin scheduled for 01/09/19 Benign essential HTN: Continue norvasc Osteoarthritis: Continue tylenol for pain prn Anxiety: Continue lorazepam 0.5 mg TID, pt typically may only use this once daily. 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 Esparza referral to vascular surgeon if needed hx Non-Hodgkin lymphoma with Abdominal lymphadenopathy: recommend to follow with Dr. Persaud as an outpatient Subjective upon discharge, no pain, feel hungry, tolerate clear liquid diet, will advance, no other complaint, conversational, Report no bowel movement for 3 days, however has been passing gas, Review of Systems Constitutional: negative weakness, or fatigue Respiratory: no cough, sputum, wheezing, or dyspnea on exertion Cardiac: No chest pain, No orthopnea, No PND, No claudication, No palpitations , Abdomen: No pain, No nausea, No vomiting, No diarrhea, Musculoskeletal: No joint pain, No muscle pain, No swelling, No calf pain, No problem reported : No dysuria, No urinary frequency, No incontinence, No hematuria Neurologic: No paralysis, No weakness, No numbness/tingling, No vertigo, No balance problems Psychiatric: No depression symptoms, No anhedonism, No anxiety, No insomnia, No substance abuse Heme: No abnormal bleeding/bruising, No clotting problems, No swollen lymph nodes, No night sweats Skin: No rash, No itch, No new/changing skin lesions, No color change, No bleeding Gastrointestinal: as per Subjective / HPI; no vomiting, no constipation, no diarrhea/loose stools, no blood in stools and no melena Physical Exam upon discharge General Appearance: WD/WN, no apparent distress, Eyes: normal inspection, PERRL, EOMI, sclerae normal ENT: normal ENT inspection, hearing grossly normal, pharynx normal Neck: supple, no adenopathy, thyroid normal, no JVD, no carotid bruits, trachea midline Respiratory/Chest: chest non-tender, normal breath sounds, no respiratory distress, no accessory muscle use, breath sounds, rales, wheezing Cardiovascular: regular rate, rhythm, no JVD, no murmur Abdomen: normal bowel sounds, non tender, soft, no organomegaly, Extremities: normal range of motion, non-tender, normal inspection, joint has no limited range of motion, capillary refill is normal, no cyanosis clubbing Neurologic/Psychiatric: creative director II-XII nml as tested, no motor/sensory deficits, alert, normal mood/affect, oriented x 3 Skin: normal color, warm/dry, no rash Lymphatic: no adenopathy Lab data upon discharge: Laboratory Results - last 24 hr 12/25/18 12/25/18 06:13 06:13 WBC 11.89 H RBC 3.30 L Hgb 11.0 L Hct 32.4 L MCV 98.2 MCH 33.3 MCHC 34.0 RDW Std Deviation 52.4 H RDW Coeff of Kaya 14.4 Plt Count 234 MPV 9.3 Immature Gran % (Auto) 6.4 Neut % (Auto) 86.2 Lymph % (Auto) 5.7 Wilkes % (Auto) 1.6 Eos % (Auto) 0.0 Baso % (Auto) 0.1 Immature Gran # (Auto) 0.76 H Neut # (Auto) 10.25 H Lymph # (Auto) 0.68 L Wilkes # (Auto) 0.19 Eos # (Auto) 0.00 Baso # (Auto) 0.01 Hyposegmented Neuts 3+ Dohle Bodies 1+ Sodium 139 Potassium 4.0 Chloride 111 H Carbon Dioxide 21 Anion Gap 7.0 BUN 20 H Creatinine 0.85 Est Cr Clr Drug Dosing 42.2 Est GFR ( Amer) 72.9 Est GFR (Non-Af Amer) 62.9 BUN/Creatinine Ratio 23.4 H Glucose 138 H Calcium 8.0 L Phosphorus 2.5 Magnesium 1.7 L Total Bilirubin 0.4 D Direct Bilirubin < 0.1 AST 29 ALT 16 Alkaline Phosphatase 68 Total Protein 6.2 L Albumin 2.7 L Globulin 3.5 Albumin/Globulin Ratio 0.8 L Microbiology 12/23/18 22:50 Blood Blood Culture - Preliminary No growth to date. 12/23/18 22:50 Blood Blood Culture - Preliminary No growth to date. 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 Esparza referral to vascular surgeon if needed hx Non-Hodgkin lymphoma with Abdominal lymphadenopathy: recommend to follow with Dr. Persaud as an outpatient you need to follow up with your primary care physician in 1 week, - take medication as instructed, never overdose or any misuse, or take with alcohol, because misuse of medicine may cause organ damage or , call me , or your primary care physician if have questions of discharge medicaitons. - call your primary care physician, or go to local emergency room if has any fever/chill, chest pain, shortness of breathing, nausea/vomiting/abdominal pain , facial droop/slurry speech/local weakness, or if has any questions. - fall precaution - diet as instructed - you need to follow up with your subspecialist, such as Dr. Dr. Persaud Prescriptions: Continue multivitamin Tablet 1 tab PO QAM RF: 0 amlodipine 5 mg tablet 5 mg PO QAM RF: 0 acetaminophen [Tylenol Extra Strength] 500 mg Tablet 1,000 mg PO Q6H PRN (Reason: Pain) RF: 0 lorazepam 0.5 mg tablet 0.5 mg PO TID PRN (Reason: Anxiety) RF: 0 ranitidine HCl 150 mg Tablet 150 mg PO BID RF: 0 furosemide 20 mg tablet 20 mg PO QAM RF: 0 Stand-Alone Forms: [facility] Discharge Orders: Discharge Order (Routine); Ordered 12/25/18 Ordered By: Ulises Phipps Admission Data Admit Date/Time: 12/23/18 14:50 Attending Provider: Ulises Phipps Admit Provider: José Miguel Machado Primary Care Provider: Chava Clements Other Providers: José Miguel Machado ; Praveen Persaud ; Mauricio Chandler ; Marcos Rodriguez Service: Telemetry
--- NOTE | 2018-12-25 10:31 | Surgery Progress Note ---
Date of Service December 25, 2018 Assessment & Plan (1) Abdominal pain: 12/25/2018 Patient seen and examined with Dr. Chandler. Abdominal pain that brought patient to ED has resolved. All questions answered. Plan is for discharge today. Discharge per primary team. Please call with questions or concerns. 12/24/2018 Patient seen and examined with Dr. Chandler. Abdominal pain that brought patient to ED has resolved. Palpable lymph node in left groin- mild tenderness. Ok to advance patient's diet and if she continues to do well can consider D/C later today. Discharge per primary team. 12/23/2018 No acute abdominal findings. Ultrasound was in progress during my exam. Will follow. Subjective Patient resting comfortably in bed- abdominal pain has resolved. Doing well. Gastrointestinal: + abdominal pain and + heartburn (during ultrasound); no bloating, no nausea, no vomiting, no change in bowel habits, no change in stools , no constipation, no diarrhea/loose stools, no fecal incontinence, no constant urge to pass stools, no blood in stools and no melena Physical Exam 2 Vital Signs (Past 24 Hours): Last Vital Signs Temp 36.6 C 12/25/18 07:00 Pulse 92 H 12/25/18 09:30 Resp 18 12/25/18 07:00 BP 146/74 H 12/25/18 09:30 Pulse Ox 90 12/25/18 07:00 Gastrointestinal (Abdomen): Percussion/Palpation: abdomen soft; abdomen nontender, no guarding and abdomen not rigid _ (1) Abdominal pain Abdominal location: lower abdomen, unspecified Qualified Code(s): R10.30 - Lower abdominal pain, unspecified
--- NOTE | 2018-12-27 06:15 | Consultation ---
Date of Consultation December 27, 2018 History of Present Illness Attending Physician: Ulises Phipps MD, PhD, [facility] History of Present Illness Patient discharged home before being seen Allergies Allergy/AdvReac Type Severity Reaction Status Date / Time cortisone Allergy Severe SWELLING , Verified 12/23/18 13:50 H/A , HALLUCINATIONS chocolate flavor Allergy Unknown RASH Unverified 12/23/18 13:50 diphenhydramine Allergy Unknown Facial Verified 12/23/18 13:50 swelling,redness and burning sensation. Iodinated Contrast- Oral and Allergy Unknown REDDNESS, Verified 12/23/18 13:50 IV Dye SWELLING Home Medications Home Medications Medication Instructions Recorded Confirmed Type acetaminophen [Tylenol Extra 1,000 mg PO Q6H PRN 12/23/18 12/23/18 History Strength] amlodipine 5 mg PO QAM 12/23/18 12/23/18 History furosemide 20 mg PO QAM 12/23/18 12/23/18 History lorazepam 0.5 mg PO TID PRN 12/23/18 12/23/18 History multivitamin 1 tab PO QAM 12/23/18 12/23/18 History ranitidine HCl 150 mg PO BID 12/23/18 12/23/18 History famotidine 20 mg PO BID 7 Days #14 tab 12/25/18 Rx magnesium oxide 400 mg PO BID 7 Days #14 tab 12/25/18 Rx Patient History Medical History Abdominal pain Osteoarthritis Non-Hodgkin lymphoma Benign essential HTN Abdominal lymphadenopathy Anxiety (Acute) DVT prophylaxis Surgical History History of arthroplasty of left knee Family History Other Leukemia Social History marital status: Single Current Living Situation: Alone Other Information That Helps Us Care for You: No Feels Safe at Home: Yes Safety Concerns: Feels Safe At This Time Smoking Status: Former smoker Hx Alcohol Use: No Hx Substance Use: No Beliefs That Will Affect Care: None Preferred Language: Barbadian Physical Exam 2 Vital Signs (Past 24 Hours): Last Vital Signs Temp 36.6 C 12/25/18 11:08 Pulse 92 H 12/25/18 11:08 Resp 18 12/25/18 11:08 BP 119/66 12/25/18 11:08 Pulse Ox 90 12/25/18 11:08
== END 2018-12-25 12:45 | disposition home or self-care (01) ==
LOC: ED 11:57 → SUATTDRO 14:50 → 2N 14:50